=== PATIENT | female | born 1950 ===

== ENCOUNTER 2021-12-24 09:37 | Outpatient (REF) | payer MEDICARE, SELFPAY ==
[2021-12-24 11:26] LABS: MANUAL DIFF FLAG NO
[2021-12-24 11:57] LABS: Appearance Urine Cloudy; Color Urine Yellow; Glucose Urine UA Negative (Negative); Leukocyte Esterase Urine Moderate (2+) (Negative); Nitrite Urine Negative (Negative); PH 7.5 (5.0-9.0); UMIC TRIGGER UA YES; Urine Blood Negative (Negative); Urine Ketones Negative (Negative); Urine Protein Negative (Neg-Trace)
[2021-12-24 11:59] LABS: Basophils Percent Auto 0.2 % (0-2); Hemoglobin 13.6 g/dl (12.0-16.0); Imm Gran Abs Auto 0.01 X10*3/uL (0.00-0.03); Imm Gran Pct Auto 0.2 % (0.0-0.4); Lymphocytes Absolute Auto 2.7 X10*3/uL (1.2-4.9); Lymphocytes Percent Auto 53.1 % (20-40); Mean Corpuscular Hemoglobin 32.4 pg (27.0-33.0); Mean Corpuscular Volume 95.2 fL (80.0-98.0); Mean Platelet Volume 9.1 fL (9.4-12.3); Monocytes Absolute Auto 0.3 X10*3/uL (0.1-1.2); Monocytes Percent Auto 5.5 % (2-11); Neutrophils Absolute Auto 2.1 x10*3/uL (2.0-8.3); Platelet Count 244 X10*3/uL (160-400); White Blood Count 5.1 X10*3/uL (4.8-10.8)
[2021-12-24 12:03] LABS: Bacteria Urine None Seen (None Seen); Hyaline Casts Urine 0-2 /LPF (0-2); RBC Urine 0-2 /HPF (0-2); Squamous Epithelial Cell Urine 0-2 /HPF (0-2)
[2021-12-24 12:27] LABS: Alanine Aminotransferase 38 U/L (0-31); Alkaline Phosphatase 47 U/L (39-117); Anion Gap 14 (12-20); Aspartate Amino Transferase 30 U/L (5-31); Bilirubin Total 1.4 mg/dL (0.0-1.0); Blood Urea Nitrogen 13 mg/dL (9-16); Calcium 9.2 mg/dL (8.4-10.2); Carbon Dioxide 27 mmol/L (22-29); Chloride 103 mmol/L (96-108); Cholesterol 166 mg/dL; Estimated Glomerular Filt Rate > 60; Glucose Fasting 92 mg/dL (60-99); HDL Cholesterol 76 mg/dL; LDL Cholesterol Calculated 66 mg/dl; Potassium 4.2 mmol/L (3.3-5.1); Sodium 140 mmol/L (135-145); Total Protein 7.5 g/dL (6.5-8.0); Triglycerides 121 mg/dL
[2021-12-24 12:29] LABS: Creatinine Urine 50.19 mg/dL; Microalbumin Urine < 5.0 mg/L
[2021-12-24 12:30] LABS: TSH reflex Free T4 1.69 uIU/mL (0.32-4.0)
== END 2021-12-24 09:38 | disposition home or self-care (01) ==
LOC: HO.HMGCLDS 09:37
PROVIDERS: PCP Family Medicine; Visit Provider Family Medicine
DX: Z00.00 Encounter for general adult medical examination without abnormal findings (principal); I10 Essential (primary) hypertension
CPT/HCPCS: 36415; 80053; 80061; 81001; 82043; 84443; 85025

== ENCOUNTER 2022-04-05 14:36 | Outpatient (REF) | payer MEDICARE, SELFPAY ==
--- NOTE | ~2022-04-05 | MM_ITS ---
EXAMINATION: MM SCREENING DIGITAL BREAST TOMOSYNTHESIS, BILATERAL CLINICAL INFORMATION: Screening. Asymptomatic. Age 71. No prior breast imaging. No known family history breast cancer. The lifetime risk of breast cancer based on the Tyrer-Cuzick Model is 3%. COMPARISON: None (current study represents initial baseline exam). TECHNIQUE: Digital breast tomosynthesis is performed in both the craniocaudal and mediolateral oblique views along with computer-aided detection (CAD). Synthesized 2D images are generated from the tomosynthesis. FINDINGS: There are scattered areas of fibroglandular density (ACR BI-RADS breast composition Category b). Breast tissue composition borders on heterogeneously dense in the bilateral anterior breasts. There are no significant masses, abnormal calcifications, or other abnormalities. The axilla and skin contours are unremarkable. MM/MM tomosynthesis screening BI IMPRESSION: No mammographic evidence of malignancy. ASSESSMENT: BI-RADS 1: Negative RECOMMENDATION: Routine annual mammography screening. This patient's information was entered into a reminder system with a target due date for their next mammogram.
== END 2022-04-05 14:37 | disposition home or self-care (01) ==
LOC: HO.MAMMO 14:36
PROVIDERS: PCP Family Medicine; Visit Provider Family Medicine
DX: Z12.31 Encounter for screening mammogram for malignant neoplasm of breast (principal)
CPT/HCPCS: 77063; 77067

== ENCOUNTER 2022-04-09 10:24 | Outpatient (REF) | payer MEDICARE, SELFPAY ==
--- NOTE | ~2022-04-09 | MR_ITS ---
EXAMINATION: MRI BRAIN WITHOUT CONTRAST. CLINICAL INFORMATION: 71-year-old with self-reported forgetfulness and family history of Alzheimer's. Other amnesia. COMPARISON: 08/10/2008 CT brain. TECHNIQUE: Multiplanar multisequence MR imaging of the brain was done without IV contrast. FINDINGS: Brain Volume: Mild generalized diffuse supratentorial parenchymal volume loss and [id number] generalized diffuse cerebellar volume loss within the limitations of qualitative assessment. Structural: No malformations. Brain and Meninges: A few small foci of subcortical FLAIR/T2 signal hyperintensity are seen in the right frontal lobe near the convexity and within the subcortical left frontal lobe as well which are nonspecific findings. Small punctate and minimal patchy zones of FLAIR/T2 signal hyperintensity are noted in the deep parieto-occipital white matter bilaterally. Minor periventricular leukoaraiosis noted bilaterally, which is an age-related phenomenon. DWI sequence demonstrates no restricted diffusion to suggest acute or subacute cerebral ischemia. Gradient refocused imaging demonstrates no abnormal susceptibility-weighted signal loss to suggest hemorrhage, hemosiderin staining or abnormal mineralization. No extra-axial fluid collections, space-occupying process or mass effect. Ventricles and Subarachnoid Spaces: The ventricular system and subarachnoid spaces are approximately proportional to the degree of parenchymal volume loss, without hydrocephalus. Orbital Structures: The visualized orbital structures are grossly unremarkable within the limitations of the study. Vascular: Signal voids are noted in the visualized major intracranial vessels. Osseous Structures, Sinuses/Mastoids, Extracranial Soft Tissues: Mild mucosal thickening in the ethmoid complex noted bilaterally. Osseous marrow signal intensity appears within normal limits. The visualized extracranial soft tissue structures are unremarkable. MR/MR head/brain wo con IMPRESSION: 1. Scattered mild white matter T2 hyperintensities in both cerebral hemispheres which are nonspecific but could be reflective of chronic ischemic microangiopathy in a patient of this age. No acute or subacute infarct, hemorrhage, extra-axial fluid collection, space-occupying process, mass effect or hydrocephalus. 2. Mild generalized diffuse supratentorial and [id number]-yy-[id number] generalized cerebellar volume loss.
== END 2022-04-09 10:25 | disposition home or self-care (01) ==
LOC: HO.MRI 10:24
PROVIDERS: Visit Provider Family Medicine
DX: R41.3 Other amnesia (principal)
CPT/HCPCS: 70551

== ENCOUNTER 2022-04-30 11:26 | Outpatient (REF) | payer MEDICARE, SELFPAY ==
[2022-04-30 13:51] LABS: MANUAL DIFF FLAG NO
[2022-04-30 13:57] LABS: Basophils Percent Auto 0.2 % (0-2); Hematocrit 40.4 % (37.0-47.0); Hemoglobin 13.6 g/dl (12.0-16.0); Imm Gran Abs Auto 0.02 X10*3/uL (0.00-0.03); Imm Gran Pct Auto 0.3 % (0.0-0.4); Lymphocytes Absolute Auto 2.1 X10*3/uL (1.2-4.9); Lymphocytes Percent Auto 36.7 % (20-40); Mean Corpuscular HGB Conc 33.7 g/dl (31.0-35.0); Mean Corpuscular Hemoglobin 31.9 pg (27.0-33.0); Mean Corpuscular Volume 94.8 fL (80.0-98.0); Mean Platelet Volume 9.1 fL (9.4-12.3); Monocytes Absolute Auto 0.4 X10*3/uL (0.1-1.2); Monocytes Percent Auto 6.7 % (2-11); Neutrophils Absolute Auto 3.3 x10*3/uL (2.0-8.3); Neutrophils Percent Auto 56.1 % (45-73); Platelet Count 225 X10*3/uL (160-400); Red Blood Count 4.26 X10*6/uL (4.20-5.50); Red Cell Distribution Width 13.2 % (11.0-16.0); White Blood Count 5.8 X10*3/uL (4.8-10.8)
[2022-04-30 14:35] LABS: Erythrocyte Sedimentation Rate 7 MM/HR (0-20)
[2022-04-30 15:44] LABS: Anion Gap 11 (12-20); Blood Urea Nitrogen 12 mg/dL (9-16); Calcium 8.8 mg/dL (8.4-10.2); Carbon Dioxide 30 mmol/L (22-29); Chloride 105 mmol/L (96-108); Estimated Glomerular Filt Rate > 60; Glucose Random 76 mg/dL (60-115); Potassium 4.2 mmol/L (3.3-5.1); Sodium 142 mmol/L (135-145)
[2022-04-30 16:16] LABS: Folate 8.4 ng/mL (> or = 4.0); Vitamin B12 644 pg/mL (200-900); Vitamin D 25-OH Total 28.7 ng/mL (>30)
[2022-05-01 04:50] LABS: Syphilis Screen Nonreactive (Nonreactive)
[2022-05-01 05:59] LABS: HBS Num1 0.11 mIU/mL (0-7.99); HBc Num1 0.12 S/CO (0.00-0.79); HBsAGNum1 0.23 S/CO (0.00-0.99); HIV AB/AG Nonreactive (Nonreactive); HIV Num 1 0.07 S/CO (0.00-0.99); Hepatitis B Core Antibody Nonreactive (Nonreactive); Hepatitis B Surface Antigen Negative (Negative); ~HepC Num1 0.15 S/CO (0.00-0.79); ~Hepatitis B Surface Antibody NONREACTIVE (Nonreactive); ~Hepatitis C Antibody Nonreactive (Nonreactive)
== END 2022-04-30 11:27 | disposition home or self-care (01) ==
LOC: HO.WFDLDS 11:26
PROVIDERS: Visit Provider Family Medicine
DX: Z00.00 Encounter for general adult medical examination without abnormal findings (principal); Z11.4 Encounter for screening for human immunodeficiency virus [HIV]; E53.8 Deficiency of other specified B group vitamins; E55.9 Vitamin D deficiency, unspecified; R41.3 Other amnesia
CPT/HCPCS: 36415; 80048; 82306; 82607; 82746; 85025; 85652; 86704; 86706; 86780; 86803; 87340; 87389

== ENCOUNTER 2022-09-06 11:42 | Outpatient (AMB) | payer MEDICARE, SELFPAY ==
--- NOTE | 2022-09-06 11:55 | MHC.PC.OV ---
Vital Signs 09/06/22 11:56 Height 5 ft 3 in Weight 129 lb 8 oz BMI 22.9 BP 118/58 L Blood Pressure Location Lt brachial Position Sitting Pulse 64 Pulse Source Pulse Oximeter Pulse Oximetry (%) 99 Oxygen Delivery Method Room Air Intake Visit Reasons: f/u bone density test and chronic conditions Intake Note: Patient is here for follow up on chronic conditions. Allergies carbamazepine [From Tegretol] Allergy (Mild, Verified 09/06/22 12:01) SKIN REACTION latex [Latex] Allergy (Mild, Verified 09/06/22 12:01) ITCHY lithium [[place]] Allergy (Mild, Verified 09/06/22 12:01) SWELLING From Seroquel Allergy (Mild, Uncoded 09/06/22 12:01) ? Tobacco use date assessed: 09/06/22 Dental Screening Dental Screen Date: 09/06/22 Did you have a dental visit in the last 12 months?: Yes Did you have a dental problem in the last 6 months where you did not have access to dental care?: No Was dental information given to patient?: No HPI f/u bone density test and chronic conditions HPI Details 72 y/o female presents to f/u bone density test and chronic conditions such as memory changes. Pt had noted she had a diagnosis of osteoporosis in the past. She had seen neuropsych 06/27/22. She had appeared to have a mild to moderate dementia, likely combination of Alzheimer's disease and vascular factors. They had recommended psychotropic medication adjustments, a sleep study and increased exercise. They report no one has contacted her yet about a bone density test. [facility] Surgical History History of partial hysterectomy Family History Other Mental health disorder Social History (Updated 09/06/22 @ 12:04 by Yelitza Henderson CMA) Housing: Condominium Alcohol intake: never Patient Tobacco Use Status: Never used Tobacco e-Cigarette/Vaping Use: Never Used Second Hand Smoke Exposure: No Special joanie needs: No service: No Current occupational status: retired Cognitive needs: No Hearing needs: No Vision needs: Yes (reading glasses) Questionnaire Thrive Questionnaire Date Thrive assessed: 03/21/22 LEXX-7 AMB Questionnaire LEXX-7 Date LEXX - 7 assessed: 03/21/22 Source: Developed by Drs. Slade Naik, Angie Morillo, Joaquín Franco and colleagues, with an educational nayeli from [employer]. Review of Systems Const Denies chills, Denies fatigue, Denies fever(s), Denies headache(s) and Denies weakness ENT Denies dizziness and Denies headache(s) Card Denies dyspnea Resp Denies cough, Denies dyspnea, Denies wheezing and Denies other (shortness of breath) Musc Denies numbness and Denies tingling Neuro Denies dizziness, Denies headache(s), Denies numbness, Denies tingling and Denies weakness Psych Denies anxiety and Denies depression Endo Denies fatigue Aller/Immun Denies wheezing Physical exam (Primary Care) Vital Signs: Last Vital Signs Pulse 64 09/06/22 11:56 BP 118/58 L 09/06/22 11:56 Pulse Ox 99 09/06/22 11:56 Oxygen Delivery Method Room Air 09/06/22 11:56 BMI result Body Mass Index 22.9 Tobacco/Smoking Status: Tobacco use Status Tobacco use date assessed 09/06/22 09/06/22 12:09 Patient Tobacco Use Status Never used Tobacco 09/06/22 12:04 e-Cigarette/Vaping Use Never Used 09/06/22 12:04 Thrive Assessment: Date of Thrive Assessment Date Thrive assessed 03/21/22 09/06/22 11:58 Const General: well developed; No acute distress Nutritional Appearance: well nourished Orientation/consciousness: patient oriented x3 HENMT Head: Yes normocephalic and Yes atraumatic Eyes General: appearance normal, both eyes and all related structures Pupils: Equal, round and reactive pupils present EOM: EOMs intact bilaterally Resp Effort & Inspection: normal respiratory effort Neuro General: patient oriented x3 and gait normal Cranial nerves: Yes Equal, round and reactive pupils present Psych Affect: normal affect Assessment and Plan Assessment & Plan (1) Memory changes: Code(s): R41.3 - Other amnesia Plan: Ongoing and worsening memory and cognition changes. Neuropsych believes this is likely Alzheimer's and likely also some microvascular dementia as well However neuropsych also suggest that her psychiatric issues and in particular depression may be affecting her memory as well Also recommended that she get a sleep study as this may be affecting cognition and memory Sleep Medicine referral is made A recommendation for donepezil was made so we will trial a low dose and follow-up Increasing citalopram for better control of depression Had a long discussion at again about benzodiazepine medications as she is on to any scanned greatly affect memory and can be permanent - patient and share that the psych medication provider had worked hard on getting her anxiety under control with these medications. We will readdress these after increasing citalopram. I will also call her current psych med provider. (2) Screening for osteoporosis: Code(s): Z13.820 - Encounter for screening for osteoporosis Plan: Order for bone density is made (3) Hypersomnolence: Code(s): G47.10 - Hypersomnia, unspecified Plan: Referred to Sleep Medicine (4) Depression with anxiety: Code(s): F41.8 - Other specified anxiety disorders Plan: As above, increasing citalopram (5) Bipolar disorder: Code(s): F31.9 - Bipolar disorder, unspecified Plan: Continue olanzapine Discussed with patient and her that neuropsych did suggest that olanzapine can be problematic for people greater than 65 No changes made currently (6) Alzheimer's dementia: Code(s): G30.9 - Alzheimer's disease, unspecified; F02.80 - Dementia in other diseases classified elsewhere, unspecified severity, without behavioral disturbance, psychotic disturbance, mood disturbance, and anxiety Plan: As above, starting a low dose of donepezil Orders: Referrals Sleep Medicine Referral G47.10 - Hypersomnia, unspecified Medications: New donepezil 5 mg PO BEDTIME 30 days 30 tabs 2RF Changed From citalopram 20 mg PO DAILY To citalopram 40 mg PO DAILY 30 days 30 tabs 2RF Coding Level of Care Code Est Pt Level 4 (74138) Diagnoses Memory changes R41.3 Screening for osteoporosis Z13.820 Hypersomnolence G47.10 Depression with anxiety F41.8 Bipolar disorder F31.9 Alzheimer's dementia G30.9; F02.80
[2022-09-06 11:56] VITALS: BP 118/58; PULSE 64; O2SAT 99; BMI 22.9
== END 2022-09-06 13:36 | disposition home or self-care (01) ==
PROVIDERS: Visit Provider Family Medicine
DX: F41.8 Other specified anxiety disorders (principal); F31.9 Bipolar disorder, unspecified; G30.9 Alzheimer's disease, unspecified; F02.80 Dementia in other diseases classified elsewhere, unspecified severity, without behavioral disturbance, psychotic disturbance, mood disturbance, and anxiety; Z13.820 Encounter for screening for osteoporosis; R41.3 Other amnesia; G47.10 Hypersomnia, unspecified
CPT/HCPCS: 99214

== ENCOUNTER 2022-11-13 14:26 | Outpatient (AMB) | payer MEDICARE, SELFPAY ==
[2022-11-13 14:32] VITALS: BP 118/62; PULSE 59; O2SAT 98; BMI 23.3
--- NOTE | 2022-11-13 14:32 | A.OFFPC_ITS ---
Vital Signs 11/13/22 14:32 Height 5 ft 3 in Weight 131 lb 6 oz BMI 23.3 BP 118/62 Blood Pressure Location Lt brachial Position Sitting Pulse 59 Pulse Oximetry (%) 98 Oxygen Delivery Method Room Air Intake Visit Reasons: f/u depression/anxiety, memory changes Intake Note: Patient is here following up on depression and anxiety and memory. Allergies carbamazepine [From Tegretol] Allergy (Mild, Verified 11/13/22 14:35) SKIN REACTION latex [Latex] Allergy (Mild, Verified 11/13/22 14:35) ITCHY lithium [[place]] Allergy (Mild, Verified 11/13/22 14:35) SWELLING From Seroquel Allergy (Mild, Uncoded 11/13/22 14:35) ? Tobacco use date assessed: 11/13/22 Fall risk assessment: No Falls in past year Last assessed Fall Risk: 11/13/22 Dental Screening Dental Screen Date: 11/13/22 Did you have a dental visit in the last 12 months?: Yes Did you have a dental problem in the last 6 months where you did not have access to dental care?: No Was dental information given to patient?: Patient has dentist HPI f/u depression/anxiety, memory changes HPI Details 72 y/o female presents to f/u depression /anxiety and memory changes. Increased her citalopram and continued her olanzapine. Had also started her on a low dose of donepezil. They report she is not on alprazolam. [facility] Surgical History History of partial hysterectomy Family History Other Mental health disorder Social History Housing: Condominium Alcohol intake: never Patient Tobacco Use Status: Never used Tobacco e-Cigarette/Vaping Use: Never Used Second Hand Smoke Exposure: No Special joanie needs: No service: No Current occupational status: retired Cognitive needs: No Hearing needs: No Vision needs: Yes (reading glasses) Questionnaire PHQ-9 Over the last 2 weeks, how often have you been bothered by any of the following problems? 1. Little interest or pleasure in doing things: not at all 2. Feeling down, depressed, or hopeless: not at all 3. Trouble falling or staying asleep, or sleeping too much: not at all 4. Feeling tired or having little energy: not at all 5. Poor appetite or overeating: not at all 6. Feeling bad about yourself - or that you are a failure or have let yourself or your family down: not at all 7. Trouble concentrating on things, such as reading the newspaper or watching television: more than half the days 8. Moving or speaking so slowly that other people could have noticed. Or the opposite - being so fidgety or restless that you have been moving around a lot more than usual: not at all 9. Thoughts that you would be better off or of hurting yourself in some way: not at all Total score: 2 Source: Developed by Drs. Slade Naik, Angie Morillo, Joaquín Franco and colleagues, with an educational nayeli from [employer]. Thrive Questionnaire Date Thrive assessed: 03/21/22 LEXX-7 AMB Questionnaire LEXX-7 Date LEXX - 7 assessed: 11/13/22 Feeling nervous, anxious, or on edge: 2 = More than half the days Not being able to stop or control worryin = Not at all Worrying too much about different things: 2 = More than half the days Trouble relaxin = Not at all Being so restless that it is hard to sit still: 0 = Not at all Becoming easily annoyed or irritable: 0 = Not at all Feeling afraid as if something awful might happen: 0 = Not at all Total LEXX-7 score (0-4 normal; 5-9 mild; 10-14 moderate; 15-21 severe): 4 Source: Developed by Drs. Slade Naik, Angie Morillo, Joaquín Franco and colleagues, with an educational nayeli from [employer]. Review of Systems Const Denies chills, Denies fatigue, Denies fever(s), Denies headache(s) and Denies weakness ENT Denies dizziness and Denies headache(s) Card Denies dyspnea Resp Denies cough, Denies dyspnea, Denies wheezing and Denies other (shortness of breath) Musc Denies numbness and Denies tingling Neuro Denies dizziness, Denies headache(s), Denies numbness, Denies tingling and Denies weakness Psych Reports anxiety and Reports depression Endo Denies fatigue Aller/Immun Denies wheezing Physical exam (Primary Care) Vital Signs: Last Vital Signs Pulse 59 11/13/22 14:32 BP 118/62 11/13/22 14:32 Pulse Ox 98 11/13/22 14:32 Oxygen Delivery Method Room Air 11/13/22 14:32 BMI result Body Mass Index 23.3 Tobacco/Smoking Status: Tobacco use Status Tobacco use date assessed 11/13/22 11/13/22 14:43 Patient Tobacco Use Status Never used Tobacco 11/13/22 14:43 e-Cigarette/Vaping Use Never Used 11/13/22 14:43 PHQ-9: PHQ-9 Score PHQ-9: Total score 2 11/13/22 14:52 Thrive Assessment: Date of Thrive Assessment Date Thrive assessed 03/21/22 11/13/22 14:43 Const General: well developed; No acute distress Nutritional Appearance: well nourished Orientation/consciousness: patient oriented x3 HENMT Head: Yes normocephalic and Yes atraumatic Eyes General: appearance normal, both eyes and all related structures Pupils: Equal, round and reactive pupils present EOM: EOMs intact bilaterally Resp Effort & Inspection: normal respiratory effort Neuro General: patient oriented x3 and gait normal Cranial nerves: Yes Equal, round and reactive pupils present Psych Affect: normal affect Assessment and Plan Assessment & Plan (1) Alzheimer's dementia: Code(s): G30.9 - Alzheimer's disease, unspecified; F02.80 - Dementia in other diseases classified elsewhere, unspecified severity, without behavioral disturbance, psychotic disturbance, mood disturbance, and anxiety Plan: Likely Alzheimer's dementia with some microvascular dementia as well May also have anxiety and depression impacting her memory changes and medications such as alprazolam are certainly affecting her memory also. Alprazolam was discontinued though lorazepam was continued. Her says he noticed a slight worsening of for memory since this change but I suspect this may be due to some increased anxiety and should either improve on its own or that she will need to have other means of controlling her anxiety. Advised she talk to her psychiatric med provider about using other medications to improve anxiety. He is apprehensive about increasing her SSRI as he notes that she has bipolar disorder. Unclear if this is bipolar 1 or bipolar 2. Follow-up with psychiat [facility] med provider. They have not tried donepezil which was recommended by neuropsychiatry. Reviewed medication with patient again and she wants to try it. If she has any adverse effects she can discontinue it. Had referred her to Sleep Medicine. Patient says she did not want to try the test. Reviewed how test is performed and she is agreeable to trying this at home. (2) Depression with anxiety: Code(s): F41.8 - Other specified anxiety disorders Plan: As above (3) Bipolar disorder: Code(s): F31.9 - Bipolar disorder, unspecified Plan: As above Coding Level of Care Code Est Pt Level 4 (95128) Diagnoses Alzheimer's dementia G30.9; F02.80 Depression with anxiety F41.8 Bipolar disorder F31.9
== END 2022-11-13 15:23 | disposition home or self-care (01) ==
PROVIDERS: PCP Family Medicine; Visit Provider Family Medicine
DX: G30.9 Alzheimer's disease, unspecified (principal); F02.80 Dementia in other diseases classified elsewhere, unspecified severity, without behavioral disturbance, psychotic disturbance, mood disturbance, and anxiety; F41.8 Other specified anxiety disorders; F31.9 Bipolar disorder, unspecified
CPT/HCPCS: 99214

== ENCOUNTER 2023-02-12 13:59 | Outpatient (AMB) | payer MEDICARE, SELFPAY ==
[2023-02-12 14:06] VITALS: BP 122/68; PULSE 61; O2SAT 98; BMI 23.6
--- NOTE | 2023-02-12 14:06 | A.OFFPC_ITS ---
Vital Signs 02/12/23 14:06 Height 5 ft 3 in Weight 133 lb 6 oz BMI 23.6 BP 122/68 Blood Pressure Location Lt brachial Position Sitting Pulse 61 Pulse Source Pulse Oximeter Pulse Oximetry (%) 98 Oxygen Delivery Method Room Air Intake Visit Reasons: f/u anxiety/depression Intake Note: Patient is here to follow up on anxiety and depression. Allergies carbamazepine [From Tegretol] Allergy (Mild, Verified 02/12/23 14:07) SKIN REACTION latex [Latex] Allergy (Mild, Verified 02/12/23 14:07) ITCHY lithium [[place]] Allergy (Mild, Verified 02/12/23 14:07) SWELLING From Seroquel Allergy (Mild, Uncoded 02/12/23 14:07) ? Tobacco use date assessed: 02/12/23 Fall risk assessment: 2 + Falls in past year Last assessed Fall Risk: 02/12/23 HPI f/u anxiety/depression HPI Details 72 y/o female presents to f/u anxiety/de pression and memory changes. Had trialed donepezil as recommended by neuropsych. She reports she has trialed this but did not like it - unclear why. She continues to take escitalopram 20mg daily for her anxiety/depression and denies any problem with this. They report two episodes of fainting spells. She reports she could improve hydration. They deny any chest pain. [facility] Surgical History History of partial hysterectomy Family History Other Mental health disorder Social History Housing: Condominium Alcohol intake: never Patient Tobacco Use Status: Never used Tobacco e-Cigarette/Vaping Use: Never Used Second Hand Smoke Exposure: No Special joanie needs: No service: No Current occupational status: retired Cognitive needs: No Hearing needs: No Vision needs: Yes (reading glasses) Questionnaire PHQ-9 Over the last 2 weeks, how often have you been bothered by any of the following problems? 1. Little interest or pleasure in doing things: not at all 2. Feeling down, depressed, or hopeless: not at all 3. Trouble falling or staying asleep, or sleeping too much: not at all 4. Feeling tired or having little energy: not at all 5. Poor appetite or overeating: not at all 6. Feeling bad about yourself - or that you are a failure or have let yourself or your family down: not at all 7. Trouble concentrating on things, such as reading the newspaper or watching television: not at all 8. Moving or speaking so slowly that other people could have noticed. Or the opposite - being so fidgety or restless that you have been moving around a lot more than usual: not at all 9. Thoughts that you would be better off or of hurting yourself in some way: not at all Total score: 0 Depression Screening Interpretation: Negative Depression Screening Done: Yes Source: Developed by Drs. Slade Naik, Angie Morillo, Joaquín Franco and colleagues, with an educational nayeli from [email or web address]. Thrive Questionnaire Date Thrive assessed: 03/21/22 LEXX-7 AMB Questionnaire LEXX-7 Date LEXX - 7 assessed: 02/12/23 Feeling nervous, anxious, or on edge: 0 = Not at all Not being able to stop or control worryin = Not at all Worrying too much about different things: 0 = Not at all Trouble relaxin = Not at all Being so restless that it is hard to sit still: 0 = Not at all Becoming easily annoyed or irritable: 0 = Not at all Feeling afraid as if something awful might happen: 0 = Not at all Total LEXX-7 score (0-4 normal; 5-9 mild; 10-14 moderate; 15-21 severe): 0 Source: Developed by Drs. Slade Naik, Angie Morillo, Joaquín Franco and colleagues, with an educational nayeli from [email or web address]. Review of Systems Const Denies chills, Denies fatigue, Denies fever(s), Denies headache(s) and Denies weakness ENT Denies dizziness and Denies headache(s) Card Denies chest pain, Denies lightheadedness, Denies dyspnea and Denies other (Palpitations) Resp Denies cough, Denies dyspnea, Denies wheezing and Denies other ( shortness of breath) Musc Denies numbness and Denies tingling Neuro Denies dizziness, Denies headache(s), Denies numbness, Denies tingling, Denies paresthesias and Denies weakness Psych Denies anxiety and Denies depression Endo Denies fatigue Aller/Immun Denies wheezing Physical exam (Primary Care) Vital Signs: Last Vital Signs Pulse 61 02/12/23 14:06 BP 122/68 02/12/23 14:06 Pulse Ox 98 02/12/23 14:06 Oxygen Delivery Method Room Air 02/12/23 14:06 BMI result Body Mass Index 23.6 Tobacco/Smoking Status: Tobacco use Status Tobacco use date assessed 02/12/23 02/12/23 14:14 Patient Tobacco Use Status Never used Tobacco 02/12/23 14:14 e-Cigarette/Vaping Use Never Used 02/12/23 14:14 PHQ-9: PHQ-9 Score PHQ-9: Total score 0 02/12/23 14:16 Depression Screening Interpretation: Negative Thrive Assessment: Date of Thrive Assessment Date Thrive assessed 03/21/22 02/12/23 14:14 Const General: no acute distress and well developed Nutritional Appearance: well nourished Orientation/consciousness: patient oriented x3 [facility] Head: Yes normocephalic and Yes atraumatic Eyes General: appearance normal, both eyes and all related structures Pupils: Equal, round and reactive pupils present EOM: EOMs intact bilaterally Resp Effort & Inspection: normal respiratory effort Auscultation: clear to auscultation bilaterally Cardio Rate: regular rate Rhythm: regular rhythm Heart sounds: S1 normal heart sound present, S2 normal heart sound present, no gallops, no murmurs and no rubs Neuro General: patient oriented x3 and gait normal Cranial nerves: Yes Equal, round and reactive pupils present Psych Affect: normal affect Assessment and Plan Assessment & Plan (1) Depression with anxiety: Code(s): F41.8 - Other specified anxiety disorders Plan: Appears?stable?on?escitalopram?20?mg?daily She?will?continue?this Has?a?new?psychiatric?medication?provider?but?her?husba nd?says?this?provider?is?not?a?good?fit Will?ask?our?nurse?navigator?to?help?get?a?new?psych?med?provider (2) Memory changes: Code(s): R41.3 - Other amnesia Plan: Tried?donepezil?but?says?she?did?not?like?it.??Was?not?clear?as?to?what?the?prob leticia?was. She?can?hold?off?on?donepezil?but?I?le t?them?know?if?they?wanted?to?try?it?again?he?can?let?me?know Encouraged?exercise?and?memory?exercises. (3) Syncope: Code(s): R55 - Syncope and collapse Plan: Patient?had?2?episodes?of?syncope Patient?and??say?she?does?not?drink?much?water?and?gets?dehydrated Encouraged?good?hydration Encouraged?her?to?stand?slowly?and?ensure?she?has?her?balance?before?walking.??S queeze?legs?prior?to?getting?up?to?walk Sit?back?down?if?feeling?dizzy They?will?let?me?know?if?she?is?still?having?symptoms Medications: Changed From atorvastatin 40 mg PO DAILY To atorvastatin 40 mg PO DAILY 90 days 90 tabs 3RF Coding Level of Care Code Est Pt Level 4 (17372) Diagnoses Depression with anxiety F41.8 Memory changes R41.3 Syncope R55
== END 2023-02-12 14:42 | disposition home or self-care (01) ==
PROVIDERS: PCP Family Medicine; Visit Provider Family Medicine
DX: F41.8 Other specified anxiety disorders (principal); R41.3 Other amnesia; R55 Syncope and collapse
CPT/HCPCS: 99214

== ENCOUNTER 2023-04-08 14:09 | Outpatient (REF) | payer MEDICARE, SELFPAY ==
--- NOTE | ~2023-04-08 | MM_ITS ---
EXAMINATION: MM SCREENING DIGITAL BREAST TOMOSYNTHESIS, BILATERAL CLINICAL INFORMATION: Screening. Asymptomatic. COMPARISON: Mammography: This study is compared with prior exams dating back to 2022. TECHNIQUE: Digital breast tomosynthesis is performed in both the craniocaudal and mediolateral oblique views along with computer-aided detection (CAD). Synthesized 2D images are generated from the tomosynthesis. FINDINGS: There are scattered areas of fibroglandular density (ACR BI-RADS breast composition Category b). There are no significant masses, abnormal calcifications, or other abnormalities. MM/MM tomosynthesis screening BI IMPRESSION: No mammographic evidence of malignancy. ASSESSMENT: BI-RADS BI-RADS 1 - Negative RECOMMENDATION: Routine annual mammography screening. 1 year F/U This examination should not preclude the clinical evaluation of a suspicious palpable abnormality. This patient's information was entered into a reminder system with a target due date for their next mammogram.
== END 2023-04-08 14:10 | disposition home or self-care (01) ==
LOC: HO.MAMMO 14:09
PROVIDERS: PCP Family Medicine; Visit Provider Family Medicine
DX: Z12.31 Encounter for screening mammogram for malignant neoplasm of breast (principal)
CPT/HCPCS: 77063; 77067

== ENCOUNTER → 2023-04-08 14:15 | Outpatient (BNV) | payer MEDICARE, SELFPAY | PROVIDERS: PCP Family Medicine; Visit Provider Radiology Diagnostic Radiology | DX: Z12.31 Encounter for screening mammogram for malignant neoplasm of breast (principal) | CPT/HCPCS: 77063; 77067 ==

== ENCOUNTER 2023-05-13 14:32 | Outpatient (AMB) | payer MEDICARE, SELFPAY ==
[2023-05-13 14:37] VITALS: BP 107/56; PULSE 62; O2SAT 97; BMI 24.6
--- NOTE | 2023-05-13 14:37 | A.OFFPC_ITS ---
Vital Signs 05/13/23 14:37 Height 5 ft 3 in Weight 139 lb BMI 24.6 BP 107/56 L Blood Pressure Location Lt brachial Position Sitting Pulse 62 Pulse Source Pulse Oximeter Pulse Oximetry (%) 97 Oxygen Delivery Method Room Air Intake Visit Reasons: f/u anxiety/depression, memory changes Intake Note: Patient is here to follow up on anxiety, depression, and memory changes. Allergies carbamazepine [From Tegretol] Allergy (Mild, Verified 05/13/23 14:38) SKIN REACTION latex [Latex] Allergy (Mild, Verified 05/13/23 14:38) ITCHY lithium [[place]] Allergy (Mild, Verified 05/13/23 14:38) SWELLING From Seroquel Allergy (Mild, Uncoded 05/13/23 14:38) ? Tobacco use date assessed: 05/13/23 Fall risk assessment: No Falls in past year Last assessed Fall Risk: 05/13/23 HPI f/u anxiety/depression, memory changes HPI Details 73 y/o female presents to f/u anxiety/de pression and memory changes. They report she does see a psychiatrist now for her mood/memory changes. She states her mood feels controlled. Hx of stroke - no recent lipid panel to review. She is on artovastatin 40mg daily. [facility] Surgical History History of partial hysterectomy Family History Other Mental health disorder Social History Housing: Condominium Alcohol intake: never Patient Tobacco Use Status: Never used Tobacco e-Cigarette/Vaping Use: Never Used Second Hand Smoke Exposure: No Special joanie needs: No service: No Current occupational status: retired Cognitive needs: No Hearing needs: No Vision needs: Yes (reading glasses) Questionnaire PHQ-9 Over the last 2 weeks, how often have you been bothered by any of the following problems? 1. Little interest or pleasure in doing things: not at all 2. Feeling down, depressed, or hopeless: not at all 3. Trouble falling or staying asleep, or sleeping too much: not at all 4. Feeling tired or having little energy: not at all 5. Poor appetite or overeating: not at all 6. Feeling bad about yourself - or that you are a failure or have let yourself or your family down: not at all 7. Trouble concentrating on things, such as reading the newspaper or watching television: not at all 8. Moving or speaking so slowly that other people could have noticed. Or the opposite - being so fidgety or restless that you have been moving around a lot more than usual: not at all 9. Thoughts that you would be better off or of hurting yourself in some way: not at all Total score: 0 Depression Screening Interpretation: Negative Depression Screening Done: Yes 94893 - PHQ-9 Billing: Yes Source: Developed by Drs. Slade Naik, Joaquín Castillo and colleagues, with an educational nayeli from [employer]. Thrive Questionnaire Date Thrive assessed: 03/21/22 LEXX-7 AMB Questionnaire LEXX-7 Date LEXX - 7 assessed: 05/13/23 Feeling nervous, anxious, or on edge: 0 = Not at all Not being able to stop or control worryin = Not at all Worrying too much about different things: 0 = Not at all Trouble relaxin = Not at all Being so restless that it is hard to sit still: 0 = Not at all Becoming easily annoyed or irritable: 0 = Not at all Feeling afraid as if something awful might happen: 0 = Not at all Total LEXX-7 score (0-4 normal; 5-9 mild; 10-14 moderate; 15-21 severe): 0 Source: Developed by Drs. Slade Naik, Joaquín Castillo and colleagues, with an educational nayeli from [employer]. LEXX-7 Assessment Billing LEXX-7 Assessment Tool: LEXX-7 Assessment 39443 Review of Systems Const Denies chills, Denies fatigue, Denies fever(s), Denies headache(s) and Denies weakness ENT Denies dizziness and Denies headache(s) Card Denies dyspnea Resp Denies cough, Denies dyspnea, Denies wheezing and Denies other (shortness of breath) Musc Denies numbness and Denies tingling Neuro Denies dizziness, Denies headache(s), Denies numbness, Denies tingling and Denies weakness Psych Denies anxiety and Denies depression Endo Denies fatigue Aller/Immun Denies wheezing Physical exam (Primary Care) Vital Signs: Last Vital Signs Pulse 62 05/13/23 14:37 BP 107/56 L 05/13/23 14:37 Pulse Ox 97 05/13/23 14:37 Oxygen Delivery Method Room Air 05/13/23 14:37 BMI result Body Mass Index 24.6 Tobacco/Smoking Status: Tobacco use Status Tobacco use date assessed 05/13/23 05/13/23 14:47 Patient Tobacco Use Status Never used Tobacco 05/13/23 14:47 e-Cigarette/Vaping Use Never Used 05/13/23 14:47 PHQ-9: PHQ-9 Score PHQ-9: Total score 0 05/13/23 14:47 Depression Screening Interpretation: Negative Thrive Assessment: Date of Thrive Assessment Date Thrive assessed 03/21/22 05/13/23 14:47 Const General: well developed; No acute distress Nutritional Appearance: well nourished Orientation/consciousness: patient oriented x3 [facility] Head: Yes normocephalic and Yes atraumatic Eyes General: appearance normal, both eyes and all related structures Pupils: Equal, round and reactive pupils present EOM: EOMs intact bilaterally Resp Effort & Inspection: normal respiratory effort Auscultation: clear to auscultation bilaterally Cardio Rate: regular rate Rhythm: regular rhythm Heart sounds: S1 normal heart sound present, S2 normal heart sound present, no gallops, no murmurs and no rubs Neuro General: patient oriented x3 and gait normal Cranial nerves: Yes Equal, round and reactive pupils present Psych Affect: normal affect Assessment and Plan Assessment & Plan (1) Depression with anxiety: Code(s): F41.8 - Other specified anxiety disorders Plan: Stable?on?escitalopram?20?mg?daily Continue?current?medication Follow-up?with?psychiatrist?as?recommended (2) Memory changes: Code(s): R41.3 - Other amnesia Plan: Significant?memory?difficulties. Probable?Alzheimer's Has?seen?neuropsychiatry?and?recommended?follow- up?in?February?but?patient?missed?appointment Her??will?help?her?make?a?new?appointment (3) History of stroke: Code(s): Z86.73 - Personal history of transient ischemic attack (TIA), and cerebral infarction without residual deficits Plan: Currently?stable She?is?on?atorvastatin?40?mg?daily?and?her?blood?pressure?is?controlled. (4) Hyperlipidemia: Code(s): E78.5 - Hyperlipidemia, unspecified Plan: As?above,?on?atorvastatin?40?mg?daily?and?will?continue?this. Will?recheck?lipids?with?next?blood?draw (5) Low vitamin D level: Code(s): R79.89 - Other specified abnormal findings of blood chemistry Plan: Mildly?low?vitamin-D?level.??Will?recheck?vitamin-D?with?next?blood?draw Coding Level of Care Code Est Pt Level 4 (18082) Diagnoses Depression with anxiety F41.8 Memory changes R41.3 History of stroke Z86.73 Hyperlipidemia E78.5 Low vitamin D level R79.89 Additional Codes LEXX-7 Assessment Billing - LEXX-7 Assessment Tool: LEXX-7 Assessment 78003 ([id number])
== END 2023-05-13 15:54 | disposition home or self-care (01) ==
PROVIDERS: PCP Family Medicine; Visit Provider Family Medicine
DX: R41.3 Other amnesia (principal); F41.8 Other specified anxiety disorders; Z86.73 Personal history of transient ischemic attack (TIA), and cerebral infarction without residual deficits; E78.5 Hyperlipidemia, unspecified; R79.89 Other specified abnormal findings of blood chemistry
CPT/HCPCS: 99214

== ENCOUNTER 2023-11-15 10:50 | Outpatient (REF) | payer MEDICARE, SELFPAY ==
[2023-11-15 13:08] LABS: MANUAL DIFF FLAG NO
[2023-11-15 13:09] LABS: Basophils Percent Auto 0.3 % (0-2); Eosinophils Absolute Auto 0.1 X10*3/uL (0.0-0.4); Eosinophils Percent Auto 1.5 % (0-4); Hematocrit 39.8 % (37.0-47.0); Hemoglobin 13.6 g/dl (12.0-16.0); Imm Gran Abs Auto 0.03 X10*3/uL (0.00-0.03); Imm Gran Pct Auto 0.5 % (0.0-0.4); Lymphocytes Absolute Auto 2.9 X10*3/uL (1.2-4.9); Lymphocytes Percent Auto 46.4 % (20-40); Mean Corpuscular HGB Conc 34.2 g/dl (31.0-35.0); Mean Corpuscular Hemoglobin 32.1 pg (27.0-33.0); Mean Corpuscular Volume 93.9 fL (80.0-98.0); Mean Platelet Volume 8.9 fL (9.4-12.3); Monocytes Absolute Auto 0.3 X10*3/uL (0.1-1.2); Monocytes Percent Auto 5.3 % (2-11); Neutrophils Absolute Auto 2.8 x10*3/uL (2.0-8.3); Platelet Count 237 X10*3/uL (160-400); Red Blood Count 4.24 X10*6/uL (4.20-5.50); Red Cell Distribution Width 13.5 % (11.0-16.0); White Blood Count 6.2 X10*3/uL (4.8-10.8)
[2023-11-15 13:11] LABS: Appearance Urine Clear; Color Urine Yellow; Glucose Urine UA Negative (Negative); Leukocyte Esterase Urine Moderate (2+) (Negative); Nitrite Urine Negative (Negative); Specific Gravity - Urine 1.015 (1.005-1.025); UMIC TRIGGER UA YES; Urine Blood Negative (Negative); Urine Ketones Negative (Negative); Urine Protein Negative (Neg-Trace)
[2023-11-15 13:14] LABS: Bacteria Urine None Seen (None Seen); Hyaline Casts Urine 0-2 /LPF (0-2); RBC Urine 0-2 /HPF (0-2)
[2023-11-15 13:40] LABS: Creatinine Urine 100.26 mg/dL; Microalbumin Urine < 5.0 mg/L
[2023-11-15 13:46] LABS: Alanine Aminotransferase 25 U/L (0-31); Albumin Level 3.7 g/dL (3.5-5.0); Alkaline Phosphatase 53 U/L (39-117); Anion Gap 11 (12-20); Aspartate Amino Transferase 23 U/L (5-31); Bilirubin Total 1.1 mg/dL (0.0-1.0); Blood Urea Nitrogen 12 mg/dL (9-16); Calcium 9.3 mg/dL (8.4-10.2); Carbon Dioxide 28 mmol/L (22-29); Chloride 107 mmol/L (96-108); Cholesterol 158 mg/dL (<200); Estimated Glomerular Filt Rate 53; Glucose Fasting 90 mg/dL (60-99); HDL Cholesterol 68 mg/dL (>40); LDL Cholesterol Calculated 65 mg/dL (<100); Sodium 142 mmol/L (135-145); Total Protein 7.2 g/dL (6.5-8.0); Triglycerides 125 mg/dL (<150)
[2023-11-15 14:03] LABS: TSH reflex Free T4 1.66 uIU/mL (0.32-4.0); Vitamin D 25-OH Total 46.4 ng/mL (>30)
== END 2023-11-15 10:51 | disposition home or self-care (01) ==
LOC: HO.HMGCLDS 10:50
PROVIDERS: PCP Family Medicine; Visit Provider Family Medicine
DX: Z00.00 Encounter for general adult medical examination without abnormal findings (principal); E55.9 Vitamin D deficiency, unspecified; I10 Essential (primary) hypertension
CPT/HCPCS: 36415; 80053; 80061; 81001; 82306; 82570; 84443; 85025

== ENCOUNTER 2023-11-26 11:17 | Outpatient (AMB) | payer MEDICARE, SELFPAY ==
--- NOTE | 2023-11-26 12:09 | A.OFFPC_ITS ---
Vital Signs 11/26/23 12:15 Height 5 ft 3 in Weight 153 lb 2 oz BMI 27.1 BP 98/70 Blood Pressure Location Lt brachial Position Sitting Respiration 14 Pulse 63 Pulse Source Pulse Oximeter Temp 97.4 F Temp Source Oral Pulse Oximetry (%) 98 Oxygen Delivery Method Room Air Intake Visit Reasons: F/U labs and health maint. PE Intake Note: FOLLOW UP LABS /PE Is last menstrual period known: No Post menopausal: No Patient : No Allergies carbamazepine [From Tegretol] Allergy (Mild, Verified 11/26/23 12:14) SKIN REACTION lithium [[place]] Allergy (Mild, Verified 11/26/23 12:14) SWELLING From Seroquel Allergy (Mild, Uncoded 11/26/23 12:14) ? Tobacco use date assessed: 11/26/23 Fall risk assessment: No Falls in past year Last assessed Fall Risk: 11/26/23 Dental Screening Dental Screen Date: 11/26/23 Did you have a dental visit in the last 12 months?: Yes Did you have a dental problem in the last 6 months where you did not have access to dental care?: No Was dental information given to patient?: Patient has dentist HPI F/U labs and health maint. PE HPI Details 73 y/o female presents for an extended e xam with f/u labs and health maintenance. Labs drawn 11/15/23. Reviewed labs with pt. Triglycerides 125. TC 158. LDL 65. HDL 68. She is on artovastatin 40mg daily. She swims for exercise. She is unsure when her last bone density test was. HPI Comments History of Present Illness Details Documentation assistance for Ran Florentino MD, was provided by Dutch Harris, [employer] on 11/26/2023 at 1:06 PM EST. I, Dr. Florentino, have read, observed, and verified documentation. [facility] Surgical History History of partial hysterectomy Family History Other Mental health disorder Social History (Updated 11/26/23 @ 12:12 by MIRANDA Whitt) Housing: Condominium Alcohol intake: never Patient Tobacco Use Status: Never used Tobacco e-Cigarette/Vaping Use: Never Used Second Hand Smoke Exposure: No Special joanie needs: No service: No Current occupational status: retired Cognitive needs: No Hearing needs: No Vision needs: Yes (reading glasses) Questionnaire PHQ-9 Over the last 2 weeks, how often have you been bothered by any of the following problems? 1. Little interest or pleasure in doing things: not at all 2. Feeling down, depressed, or hopeless: not at all 3. Trouble falling or staying asleep, or sleeping too much: not at all 4. Feeling tired or having little energy: not at all 5. Poor appetite or overeating: not at all 6. Feeling bad about yourself - or that you are a failure or have let yourself or your family down: not at all 7. Trouble concentrating on things, such as reading the newspaper or watching television: not at all 8. Moving or speaking so slowly that other people could have noticed. Or the opposite - being so fidgety or restless that you have been moving around a lot more than usual: not at all 9. Thoughts that you would be better off or of hurting yourself in some way: not at all Total score: 0 Depression Screening Interpretation: Negative Depression Screening Done: Yes 15248 - PHQ-9 Billing: Yes Source: Developed by Drs. Slade Naik, Angie Morillo, Joaquín Franco and colleagues, with an educational nayeli from [employer]. Thrive Questionnaire Date Thrive assessed: 11/26/23 I am a: Patient What is your living situation today?: I have a steady place to live Within the past 12 months, did the food you bought not last and you didn't have the money to get more?: Never true Within the past 12 months, did you worry whether your food would run out before you got money to buy more?: Never true Do you have trouble paying for medicines?: No Do you have trouble getting transportation to medical appointments?: No Do you have trouble paying your heating and electricity bill?: No Do you have trouble taking care of your child, family member or friend?: No Do you have trouble with day-to-day activities such as bathing, preparing meals, shopping, managing finances, etc.?: No Are you currently unemployed and looking for a job?: No Are you interested in more education?: No Please select the resources that you would like help with: None Currently or been in a relationship where the following occur: No concerns reported THRIVE Score: 0 AUDIT C Alcohol Use Questionnaire (AUDIT-C) 1. How often do you have a drink containing alcohol?: Never 3. How often do you have six or more drinks on one occasion?: Never Total Score: 0 LEXX-7 AMB Questionnaire LEXX-7 Date LEXX - 7 assessed: 11/26/23 Feeling nervous, anxious, or on edge: 0 = Not at all Not being able to stop or control worryin = Not at all Worrying too much about different things: 0 = Not at all Trouble relaxin = Not at all Being so restless that it is hard to sit still: 0 = Not at all Becoming easily annoyed or irritable: 0 = Not at all Feeling afraid as if something awful might happen: 0 = Not at all Total LEXX-7 score (0-4 normal; 5-9 mild; 10-14 moderate; 15-21 severe): 0 Source: Developed by Drs. Slade Naik, Angie Morillo, Joaquín Franco and colleagues, with an educational nayeli from [employer]. LEXX-7 Assessment Billing LEXX-7 Assessment Tool: LEXX-7 Assessment 52366 Review of Systems Const Denies chills, Denies fatigue, Denies fever(s), Denies headache(s) and Denies weakness Eyes Denies change in vision ENT Denies dizziness, Denies headache(s), Denies hearing loss, Denies nasal congestion, Denies sinus pain, Denies sinus pressure and Denies sore throat Card Denies chest pain, Denies lightheadedness, Denies dyspnea and Denies other (palpitations) Resp Denies cough, Denies dyspnea and Denies wheezing GI Denies abdominal pain, Denies melena, Denies hematochezia, Denies change in bowel habits, Denies dyspepsia and Denies nausea Denies hematuria and Denies dysuria Musc Denies abnormal gait, Denies myalgias, Denies arthralgias, Denies numbness and Denies tingling Skin/Breast Denies rash, Denies unusual bruising and Denies wounds Neuro Denies abnormal gait, Denies dizziness, Denies headache(s), Denies memory loss, Denies numbness, Denies Sensory deficit (Neuro), Denies tingling and Denies weakness Psych Denies anxiety, Denies depression and Denies memory loss Endo Denies cold intolerance, Denies fatigue, Denies heat intolerance, Denies polydipsia and Denies polyuria Jp/Lymph Denies easy bleeding and Denies easy bruising Aller/Immun Denies wheezing Physical exam (Primary Care) Vital Signs: Last Vital Signs Temp 97.4 F 11/26/23 12:15 Pulse 63 11/26/23 12:15 Resp 14 11/26/23 12:15 BP 98/70 11/26/23 12:15 Pulse Ox 98 11/26/23 12:15 Oxygen Delivery Method Room Air 11/26/23 12:15 BMI result Body Mass Index 27.1 Tobacco/Smoking Status: Tobacco use Status Tobacco use date assessed 11/26/23 11/26/23 12:18 Patient Tobacco Use Status Never used Tobacco 11/26/23 12:18 e-Cigarette/Vaping Use Never Used 11/26/23 12:18 PHQ-9: PHQ-9 Score PHQ-9: Total score 0 11/26/23 13:04 Depression Screening Interpretation: Negative Thrive Assessment: Date of Thrive Assessment Date Thrive assessed 11/26/23 11/26/23 12:18 Currently or been in a relationship where the following occur: No concerns reported Const General: no acute distress, well developed, alert and awake Nutritional Appearance: well nourished Orientation/consciousness: patient oriented x3 HENMT Head: Yes normocephalic and Yes atraumatic Ears: hearing grossly normal bilaterally and TM's normal bilaterally General nose exam: Normal external nose present and Normal nares present Mouth: Normal oral and palatal mucosa present and moist mucous membranes Teeth and gingiva: dentition normal Throat: Yes posterior oropharynx normal Eyes General: appearance normal, both eyes and all related structures Pupils: Equal, round and reactive pupils present and Pupil accommodation reflex normal EOM: EOMs intact bilaterally Neck Neck: Yes normal visual inspection, Yes no lymphadenopathy and Yes trachea midline Thyroid: Thyroid normal Carotids: no bruits Lymphatic: no lymphadenopathy noted Chest Chest palpation & inspection: normal inspection of the chest Resp Effort & Inspection: normal respiratory effort Auscultation: clear to auscultation bilaterally Cardio Rate: regular rate Rhythm: regular rhythm Heart sounds: S1 normal heart sound present, S2 normal heart sound present, no gallops, no murmurs and no rubs Bruits: no abdominal aortic bruits and no carotid bruits GI Palpation (GI): No Abdominal aortic bruit present, Soft to palpation, nontender, No hepatosplenomegaly present and No Rebound tenderness present Auscultation: normal bowel sounds General: Yes no CVA tenderness Back/Spine/Pelvis Back: no CVA tenderness Cervical Spine: cervical ROM normal and No Cervical spine tenderness Thoracic/Lumbar Spine: thoraco-lumbar ROM normal, No pain with thoraco-lumbar ROM, No thoracic spinal tenderness and No lumbar spinal tenderness Skin Lesions: no lesions Rashes: no rashes Trauma: no lacerations or abrasions Wounds: no wounds Nails: normal Neuro General: patient oriented x3 and No gait normal Cranial nerves: Yes Equal, round and reactive pupils present Cognition (Neuro): normal cognition Gait exam (Neuro): gait abnormal and Assisted gait required (Cane) Sensory Exam: No Sensory deficit (Neuro) Deep tendon reflexes (DTR's): Right patellar reflex intensity grade: 2+ and Left patellar reflex intensity grade: 2+ Extrem General: Yes normal to inspection and No edema Psych Appearance: grossly normal Affect: normal affect Attitude: cooperative Thought process: Normal thought process present Coding Level of Care Code Est Pt Level 4 (63954) Diagnoses Hyperlipidemia E78.5 Lower extremity weakness R29.898 Screening for colon cancer Z12.11 Renal insufficiency N28.9 Screening for osteoporosis Z13.820 Breast cancer screening by mammogram Z12.31 Adult general medical exam Z00.00 Additional Codes LEXX-7 Assessment Billing - LEXX-7 Assessment Tool: LEXX-7 Assessment 40488 ([id number]) Assessment & Plan Assessment & Plan (1) Hyperlipidemia: Code(s): E78.5 - Hyperlipidemia, unspecified Category: Medical Plan: Lipids?well?controlled?on?atorvastatin Continue?current?medication (2) Lower extremity weakness: Code(s): R29.898 - Other symptoms and signs involving the musculoskeletal system Category: Medical Plan: Mild?left?lower?extremity?weakness. No?other?focal?neurologic?deficits. LLE?4/5?strength.??RLE?5/5?strength Patient?is?walking?steadily Continue?exercise Use?cane?if?feeling?unsteady She?will?let?me?know?if?feeling?weaker?or?more?unsteady - would?start?physical?therapy (3) Screening for colon cancer: Code(s): Z12.11 - Encounter for screening for malignant neoplasm of colon Category: Medical Plan: Cologuard?test?order (4) Renal insufficiency: Code(s): N28.9 - Disorder of kidney and ureter, unspecified Category: Medical Plan: She?had?mild?jump?in?her?creatinine?level?and?mild?decreased?GFR Hydrate?well Will?recheck?renal?function?prior?to?next?visit (5) Screening for osteoporosis: Code(s): Z13.820 - Encounter for screening for osteoporosis Category: Medical Plan: Due?for?bone?density?testing-ordered (6) Breast cancer screening by mammogram: Code(s): Z12.31 - Encounter for screening mammogram for malignant neoplasm of breast Category: Medical Plan: Last?mammogram?in?March?and?will?be?due?again?this?March Ordered (7) Adult general medical exam: Code(s): Z00.00 - Encounter for general adult medical examination without abnormal findings Category: Medical Plan: 73-year-old?female?presents?for?an?extended?exam Encouraged?healthy?diet?with?active?lifestyle?and?plenty?of?exercise Orders: Orders XR DEXA axial skeleton Today M81.0 - Age-related osteoporosis without current pathological fracture MM tomosynthesis screening BI Today Z12.31 - Encounter for screening mammogram for malignant neoplasm of breast Basic Metabolic Panel Today N28.9 - Disorder of kidney and ureter, unspecified Referrals Cologuard Test Z12.11 - Encounter for screening for malignant neoplasm of colon
[2023-11-26 12:15] VITALS: BP 98/70; PULSE 63; RESP 14; TEMP 36.3; O2SAT 98; BMI 27.1
== END 2023-11-26 13:19 | disposition home or self-care (01) ==
PROVIDERS: PCP Family Medicine; Visit Provider Family Medicine
DX: E78.5 Hyperlipidemia, unspecified (principal); R29.898 Other symptoms and signs involving the musculoskeletal system; Z12.11 Encounter for screening for malignant neoplasm of colon; N28.9 Disorder of kidney and ureter, unspecified; Z13.820 Encounter for screening for osteoporosis; Z12.31 Encounter for screening mammogram for malignant neoplasm of breast; Z00.00 Encounter for general adult medical examination without abnormal findings

== ENCOUNTER → 2023-11-26 11:17 | Outpatient (BNVA) | payer MEDICARE, SELFPAY | PROVIDERS: PCP Family Medicine; Visit Provider Family Medicine | DX: Z00.01 Encounter for general adult medical examination with abnormal findings (principal); E78.5 Hyperlipidemia, unspecified; R29.898 Other symptoms and signs involving the musculoskeletal system; N28.9 Disorder of kidney and ureter, unspecified | CPT/HCPCS: 96127; 99212 ==

== ENCOUNTER 2024-03-01 11:36 | Outpatient (AMB) | payer MEDICARE, SELFPAY ==
--- NOTE | 2024-03-01 11:59 | A.OFFPC_ITS ---
Vital Signs 03/01/24 12:02 Height 5 ft 3 in Weight 152 lb 8 oz BMI 27.0 BP 96/64 Blood Pressure Location Lt brachial Position Sitting Respiration 12 Pulse 61 Pulse Source Pulse Oximeter Temp 97.9 F Temp Source Oral Pulse Oximetry (%) 96 Oxygen Delivery Method Room Air Intake Visit Reasons: f/u chronic conditions, health maintenance Allergies carbamazepine [From Tegretol] Allergy (Mild, Verified 11/26/23 12:14) SKIN REACTION lithium [[place]] Allergy (Mild, Verified 11/26/23 12:14) SWELLING From Seroquel Allergy (Mild, Uncoded 11/26/23 12:14) ? Tobacco use date assessed: 11/26/23 Dental Screening Dental Screen Date: 11/26/23 HPI f/u chronic conditions, health maintenance HPI Details 73 y/o female presents to f/u mild renal insufficiency, health maintenance. No recent labs to review. Mammogram and bone density scheduled March. [facility] Surgical History History of partial hysterectomy Family History Other Mental health disorder Social History (Updated 11/26/23 @ 12:12 by Luzma Kowalski [facility] Housing: Condominium Alcohol intake: never Patient Tobacco Use Status: Never used Tobacco e-Cigarette/Vaping Use: Never Used Second Hand Smoke Exposure: No Special joanie needs: No service: No Current occupational status: retired Cognitive needs: No Hearing needs: No Vision needs: Yes (reading glasses) Questionnaire PHQ-9 Over the last 2 weeks, how often have you been bothered by any of the following problems? 1. Little interest or pleasure in doing things: not at all 2. Feeling down, depressed, or hopeless: not at all 3. Trouble falling or staying asleep, or sleeping too much: not at all 4. Feeling tired or having little energy: not at all 5. Poor appetite or overeating: not at all 6. Feeling bad about yourself - or that you are a failure or have let yourself or your family down: not at all 7. Trouble concentrating on things, such as reading the newspaper or watching television: not at all 8. Moving or speaking so slowly that other people could have noticed. Or the opposite - being so fidgety or restless that you have been moving around a lot more than usual: not at all 9. Thoughts that you would be better off or of hurting yourself in some way: not at all Total score: 0 Depression Screening Interpretation: Negative Depression Screening Done: Yes [id number] - PHQ-9 Billing: Yes Source: Developed by Drs. Slade Naik, Angie Morillo, Joaquín Franco and colleagues, with an educational nayeli from [employer]. Thrive Questionnaire Date Thrive assessed: 11/26/23 I am a: Patient What is your living situation today?: I have a steady place to live Within the past 12 months, did the food you bought not last and you didn't have the money to get more?: Never true Within the past 12 months, did you worry whether your food would run out before you got money to buy more?: Never true Do you have trouble paying for medicines?: No Do you have trouble getting transportation to medical appointments?: No Do you have trouble paying your heating and electricity bill?: No Do you have trouble taking care of your child, family member or friend?: No Do you have trouble with day-to-day activities such as bathing, preparing meals, shopping, managing finances, etc.?: No Are you currently unemployed and looking for a job?: No Are you interested in more education?: No Please select the resources that you would like help with: None Currently or been in a relationship where the following occur: No concerns reported THRIVE Score: 0 LEXX-7 AMB Questionnaire LEXX-7 Date LEXX - 7 assessed: 03/01/24 Feeling nervous, anxious, or on edge: 0 = Not at all Not being able to stop or control worryin = Not at all Worrying too much about different things: 0 = Not at all Trouble relaxin = Not at all Being so restless that it is hard to sit still: 0 = Not at all Becoming easily annoyed or irritable: 0 = Not at all Feeling afraid as if something awful might happen: 0 = Not at all Total LEXX-7 score (0-4 normal; 5-9 mild; 10-14 moderate; 15-21 severe): 0 Source: Developed by Drs. Slade Naik, Angie Morillo, Joaquín Franco and colleagues, with an educational nayeli from [employer]. LEXX-7 Assessment Billing LEXX-7 Assessment Tool: LEXX-7 Assessment 79898 Review of Systems Const Denies chills, Denies fatigue, Denies fever(s), Denies headache(s) and Denies weakness ENT Denies dizziness and Denies headache(s) Card Denies dyspnea Resp Denies cough, Denies dyspnea, Denies wheezing and Denies other (shortness of breath) Musc Denies numbness and Denies tingling Neuro Denies dizziness, Denies headache(s), Denies numbness, Denies tingling and Denies weakness Psych Denies anxiety and Denies depression Endo Denies fatigue Aller/Immun Denies wheezing Physical exam (Primary Care) Vital Signs: Last Vital Signs Temp 97.9 F 03/01/24 12:02 Pulse 61 03/01/24 12:02 Resp 12 03/01/24 12:02 BP 96/64 03/01/24 12:02 Pulse Ox 96 03/01/24 12:02 Oxygen Delivery Method Room Air 03/01/24 12:02 BMI result Body Mass Index 27.0 Tobacco/Smoking Status: Tobacco use Status Tobacco use date assessed 11/26/23 03/01/24 11:59 Patient Tobacco Use Status Never used Tobacco 03/01/24 11:59 e-Cigarette/Vaping Use Never Used 03/01/24 11:59 PHQ-9: PHQ-9 Score PHQ-9: Total score 0 03/01/24 12:07 Depression Screening Interpretation: Negative Thrive Assessment: Date of Thrive Assessment Date Thrive assessed 11/26/23 03/01/24 11:59 Currently or been in a relationship where the following occur: No concerns reported Const General: well developed; No acute distress Nutritional Appearance: well nourished Orientation/consciousness: patient oriented x3 HENMT Head: Yes normocephalic and Yes atraumatic Eyes General: appearance normal, both eyes and all related structures Pupils: Equal, round and reactive pupils present EOM: EOMs intact bilaterally Resp Effort & Inspection: normal respiratory effort Neuro General: patient oriented x3 and gait normal Cranial nerves: Yes Equal, round and reactive pupils present Psych Affect: normal affect Coding Level of Care Code Est Pt Level 3 (78789) Diagnoses Renal insufficiency N28.9 Breast cancer screening by mammogram Z12.31 Screening for osteoporosis Z13.820 Additional Codes LEXX-7 Assessment Billing - LEXX-7 Assessment Tool: LEXX-7 Assessment 12275 ([id number]) PHQ-9 - 27285 - PHQ-9 Billing: Yes ([id number]) Assessment & Plan Assessment & Plan (1) Renal insufficiency: Code(s): N28.9 - Disorder of kidney and ureter, unspecified Category: Medical Plan: Mild?renal?insufficiency?at?last?visit Had?ordered?labs?but?she?has?not?gotten?those?done?yet?and?will?do?so?today. Patient?says?she?still?i s?not?drinking?much?water?and?I?strongly?encouraged?that?she?increase?her?water? intake (2) Breast cancer screening by mammogram: Code(s): Z12.31 - Encounter for screening mammogram for malignant neoplasm of breast Category: Medical Plan: Has?appointment?March (3) Screening for osteoporosis: Code(s): Z13.820 - Encounter for screening for osteoporosis Category: Medical Plan: Has?appointment?March Orders: Orders Comprehensive Steward. Panel Fast Today Z00.00 - Encounter for general adult medical examination without abnormal findings Complete Blood Count Auto Diff Today Z00.00 - Encounter for general adult medical examination without abnormal findings UA and rflx microscopic Today Z00.00 - Encounter for general adult medical examination without abnormal findings Lipid Panel Today Z00.00 - Encounter for general adult medical examination without abnormal findings TSH reflex Free T4 Today Z00.00 - Encounter for general adult medical examination without abnormal findings Microalbumin, Random (w Creat) Today I10 - Essential (primary) hypertension
[2024-03-01 12:02] VITALS: BP 96/64; PULSE 61; RESP 12; TEMP 36.6; O2SAT 96; BMI 27.0
== END 2024-03-01 12:58 | disposition home or self-care (01) ==
PROVIDERS: PCP Family Medicine; Visit Provider Family Medicine
DX: N28.9 Disorder of kidney and ureter, unspecified (principal); Z12.31 Encounter for screening mammogram for malignant neoplasm of breast; Z13.820 Encounter for screening for osteoporosis

== ENCOUNTER 2024-03-01 12:50 | Outpatient (REF) | payer MEDICARE, SELFPAY ==
[2024-03-01 14:36] LABS: Appearance Urine Clear; Color Urine Yellow; Glucose Urine UA Negative (Negative); Leukocyte Esterase Urine Large (3+) (Negative); Nitrite Urine Negative (Negative); PH 7.5 (5.0-9.0); Specific Gravity - Urine 1.025 (1.005-1.025); UMIC TRIGGER UA YES; Urine Blood Negative (Negative); Urine Ketones Negative (Negative); Urine Protein Negative (Neg-Trace)
[2024-03-01 14:44] LABS: Bacteria Urine None Seen (None Seen); Hyaline Casts Urine 0-2 /LPF (0-2); RBC Urine 0-2 /HPF (0-2); WBC Urine 21-50 /HPF (0-5)
[2024-03-01 14:48] LABS: MANUAL DIFF FLAG NO
[2024-03-01 14:57] LABS: Hematocrit 41.2 % (37.0-47.0); Imm Gran Abs Auto 0.01 X10*3/uL (0.00-0.03); Imm Gran Pct Auto 0.2 % (0.0-0.4); Lymphocytes Absolute Auto 2.2 X10*3/uL (1.2-4.9); Lymphocytes Percent Auto 43.5 % (20-40); Mean Corpuscular Hemoglobin 31.9 pg (27.0-33.0); Mean Corpuscular Volume 93.8 fL (80.0-98.0); Mean Platelet Volume 8.9 fL (9.4-12.3); Monocytes Absolute Auto 0.3 X10*3/uL (0.1-1.2); Monocytes Percent Auto 6.2 % (2-11); Neutrophils Absolute Auto 2.6 x10*3/uL (2.0-8.3); Neutrophils Percent Auto 50.1 % (45-73); Platelet Count 251 X10*3/uL (160-400); Red Blood Count 4.39 X10*6/uL (4.20-5.50); Red Cell Distribution Width 12.8 % (11.0-16.0); White Blood Count 5.2 X10*3/uL (4.8-10.8)
[2024-03-01 15:14] LABS: Creatinine Urine 169.45 mg/dL; Microalbum/Creatinine Ratio Ur 5.3 ug/mg cr (<30)
[2024-03-01 15:44] LABS: Alanine Aminotransferase 18 U/L (0-31); Albumin Level 3.8 g/dL (3.5-5.0); Anion Gap 8 (12-20); Aspartate Amino Transferase 23 U/L (5-31); Bilirubin Total 1.2 mg/dL (0.0-1.0); Blood Urea Nitrogen 11 mg/dL (9-16); Calcium 9.2 mg/dL (8.4-10.2); Carbon Dioxide 29 mmol/L (22-29); Chloride 108 mmol/L (96-108); Cholesterol 144 mg/dL (<200); Estimated Glomerular Filt Rate > 60; Glucose Fasting 98 mg/dL (60-99); Glucose Random 98 mg/dL (60-115); HDL Cholesterol 67 mg/dL (>40); LDL Cholesterol Calculated 52 mg/dL (<100); Potassium 4.3 mmol/L (3.3-5.1); Sodium 141 mmol/L (135-145); Total Protein 7.2 g/dL (6.5-8.0); Triglycerides 129 mg/dL (<150)
[2024-03-01 17:16] LABS: Alkaline Phosphatase 56 U/L (39-117)
== END 2024-03-01 12:51 | disposition home or self-care (01) ==
LOC: HO.WFDLDS 12:50
PROVIDERS: Visit Provider Family Medicine
DX: I10 Essential (primary) hypertension (principal); N28.9 Disorder of kidney and ureter, unspecified
CPT/HCPCS: 36415; 80048; 80053; 80061; 81001; 82043; 82570; 84443; 85025; 96127; 99212

== ENCOUNTER 2024-04-12 10:23 | Outpatient (REF) | payer MEDICARE, SELFPAY ==
[2024-04-12 12:48] LABS: Appearance Urine Cloudy; Color Urine Yellow; Glucose Urine UA Negative (Negative); Leukocyte Esterase Urine Large (3+) (Negative); Nitrite Urine Negative (Negative); UMIC TRIGGER UA YES; Urine Blood Trace (Negative); Urine Ketones Negative (Negative); Urine Protein Trace mg/dL (Neg-Trace)
[2024-04-12 12:52] LABS: Bacteria Urine None Seen (None Seen); RBC Urine 0-2 /HPF (0-2); WBC Urine >50 /HPF (0-5)
== END 2024-04-12 10:24 | disposition home or self-care (01) ==
LOC: HO.HMGCLDS 10:23
PROVIDERS: PCP Family Medicine; Visit Provider Family Medicine
DX: Z00.00 Encounter for general adult medical examination without abnormal findings (principal)
CPT/HCPCS: 81001

== ENCOUNTER → 2024-04-13 10:45 | Outpatient (BNV) | payer MEDICARE, SELFPAY | PROVIDERS: PCP Family Medicine; Visit Provider Internal Medicine | DX: Z12.31 Encounter for screening mammogram for malignant neoplasm of breast (principal) | CPT/HCPCS: 77063; 77067 ==

== ENCOUNTER 2024-04-13 10:52 | Outpatient (REF) | payer MEDICARE, SELFPAY | END 2024-04-13 10:53 | disposition home or self-care (01) | LOC: HO.MAMMO 10:52 | PROVIDERS: PCP Family Medicine; Visit Provider Family Medicine | DX: Z12.31 Encounter for screening mammogram for malignant neoplasm of breast (principal); M81.0 Age-related osteoporosis without current pathological fracture | CPT/HCPCS: 77063; 77067; 77080 ==

== ENCOUNTER 2024-04-22 14:34 | Outpatient (AMB) | payer MEDICARE, SELFPAY ==
--- NOTE | 2024-04-22 14:51 | A.OFFPC_ITS ---
Vital Signs 04/22/24 14:54 Height 5 ft 3 in Weight 155 lb 4 oz BMI 27.5 BP 110/68 Blood Pressure Location Lt brachial Position Sitting Respiration 12 Pulse 67 Pulse Source Pulse Oximeter Temp 97.7 F Temp Source Oral Pulse Oximetry (%) 98 Oxygen Delivery Method Room Air Intake Visit Reasons: f/u renal insufficiency, labs Intake Note: follow up labs Allergies carbamazepine [From Tegretol] Allergy (Mild, Verified 04/22/24 14:51) SKIN REACTION lithium [[place]] Allergy (Mild, Verified 04/22/24 14:51) SWELLING From Seroquel Allergy (Mild, Uncoded 11/26/23 12:14) ? Medication List - Last Reconciled 04/22/24 by Ran Florentino MD atorvastatin 40 mg PO DAILY 90 days calcium carbonate ([place]) 168 mg PO TID cholecalciferol (vitamin D3) 50 mcg PO DAILY 90 days escitalopram oxalate 20 mg PO DAILY escitalopram oxalate 20 mg PO DAILY hydroxyzine HCl 25 mg PO BID PRN lorazepam 0.5 mg PO DAILY olanzapine 10 mg PO BEDTIME Tobacco use date assessed: 11/26/23 Dental Screening Dental Screen Date: 11/26/23 HPI f/u renal insufficiency, labs HPI Details 73 y/o female presents to f/u renal insu fficiency, labs. Labs drawn 03/01/24. Reviewed labs with pt. Triglycerides 129. TC 144. LDL 52. HDL 67. Estimated GFR >60. Creatinine level 0.88. Recent mammogram was fine. She takes cholecalciferol 50mcg daily. Bone density shows osteopenia but not osteoporosis. [facility] Surgical History History of partial hysterectomy Family History Other Mental health disorder Social History (Updated 11/26/23 @ 12:12 by MIRANDA Whitt) Housing: Condominium Alcohol intake: never Patient Tobacco Use Status: Never used Tobacco e-Cigarette/Vaping Use: Never Used Second Hand Smoke Exposure: No Special joanie needs: No service: No Current occupational status: retired Cognitive needs: No Hearing needs: No Vision needs: Yes (reading glasses) Questionnaire PHQ-9 Over the last 2 weeks, how often have you been bothered by any of the following problems? 1. Little interest or pleasure in doing things: not at all 2. Feeling down, depressed, or hopeless: not at all 3. Trouble falling or staying asleep, or sleeping too much: not at all 4. Feeling tired or having little energy: not at all 5. Poor appetite or overeating: not at all 6. Feeling bad about yourself - or that you are a failure or have let yourself or your family down: not at all 7. Trouble concentrating on things, such as reading the newspaper or watching television: not at all 8. Moving or speaking so slowly that other people could have noticed. Or the opposite - being so fidgety or restless that you have been moving around a lot more than usual: not at all 9. Thoughts that you would be better off or of hurting yourself in some way: not at all Total score: 0 Source: Developed by Drs. Slade Naik, Angie Morillo, Joaquín Franco and colleagues, with an educational nayeli from [employer]. Thrive Questionnaire Date Thrive assessed: 11/26/23 I am a: Patient What is your living situation today?: I have a steady place to live Within the past 12 months, did the food you bought not last and you didn't have the money to get more?: Never true Within the past 12 months, did you worry whether your food would run out before you got money to buy more?: Never true Do you have trouble paying for medicines?: No Do you have trouble getting transportation to medical appointments?: No Do you have trouble paying your heating and electricity bill?: No Do you have trouble taking care of your child, family member or friend?: No Do you have trouble with day-to-day activities such as bathing, preparing meals, shopping, managing finances, etc.?: No Are you currently unemployed and looking for a job?: No Are you interested in more education?: No Please select the resources that you would like help with: None Currently or been in a relationship where the following occur: No concerns reported THRIVE Score: 0 AUDIT C Alcohol Use Questionnaire (AUDIT-C) 1. How often do you have a drink containing alcohol?: Monthly or less 2. How many drinks containing alcohol do you have on a typical day when you are drinking?: 1 or 2 3. How often do you have six or more drinks on one occasion?: Never Total Score: 1 LEXX-7 AMB Questionnaire LEXX-7 Date LEXX - 7 assessed: 03/01/24 Feeling nervous, anxious, or on edge: 0 = Not at all Not being able to stop or control worryin = Not at all Worrying too much about different things: 0 = Not at all Trouble relaxin = Not at all Being so restless that it is hard to sit still: 0 = Not at all Becoming easily annoyed or irritable: 0 = Not at all Feeling afraid as if something awful might happen: 0 = Not at all Total LEXX-7 score (0-4 normal; 5-9 mild; 10-14 moderate; 15-21 severe): 0 Source: Developed by Drs. Slade Naik, Angie Morillo, Joaquín Franco and colleagues, with an educational nayeli from [employer]. Review of Systems Const Denies chills, Denies fatigue, Denies fever(s), Denies headache(s) and Denies weakness ENT Denies dizziness and Denies headache(s) Card Denies dyspnea Resp Denies cough, Denies dyspnea, Denies wheezing and Denies other (shortness of breath) Musc Denies numbness and Denies tingling Neuro Denies dizziness, Denies headache(s), Denies numbness, Denies tingling and Denies weakness Psych Denies anxiety and Denies depression Endo Denies fatigue Aller/Immun Denies wheezing Physical exam (Primary Care) Vital Signs: Last Vital Signs Temp 97.7 F 04/22/24 14:54 Pulse 67 04/22/24 14:54 Resp 12 04/22/24 14:54 BP 110/68 04/22/24 14:54 Pulse Ox 98 04/22/24 14:54 Oxygen Delivery Method Room Air 04/22/24 14:54 BMI result Body Mass Index 27.5 Tobacco/Smoking Status: Tobacco use Status Tobacco use date assessed 11/26/23 04/22/24 14:57 Patient Tobacco Use Status Never used Tobacco 04/22/24 14:57 e-Cigarette/Vaping Use Never Used 04/22/24 14:57 PHQ-9: PHQ-9 Score PHQ-9: Total score 0 04/22/24 14:57 Thrive Assessment: Date of Thrive Assessment Date Thrive assessed 11/26/23 04/22/24 14:57 Currently or been in a relationship where the following occur: No concerns reported Const General: well developed; No acute distress Nutritional Appearance: well nourished Orientation/consciousness: patient oriented x3 HENMT Head: Yes normocephalic and Yes atraumatic Eyes General: appearance normal, both eyes and all related structures Pupils: Equal, round and reactive pupils present EOM: EOMs intact bilaterally Resp Effort & Inspection: normal respiratory effort Neuro General: patient oriented x3 and gait normal Cranial nerves: Yes Equal, round and reactive pupils present Psych Affect: normal affect Coding Level of Care Code Est Pt Level 4 (77864) Diagnoses Renal insufficiency N28.9 Breast cancer screening by mammogram Z12.31 Screening for osteoporosis Z13.820 Assessment & Plan Assessment & Plan (1) Renal insufficiency: Code(s): N28.9 - Disorder of kidney and ureter, unspecified Category: Medical Plan: Renal?function?is?within?normal?limits Continue?good?hydration (2) Breast cancer screening by mammogram: Code(s): Z12.31 - Encounter for screening mammogram for malignant neoplasm of breast Category: Medical Plan: Mammogram?was?normal Continue?annual?screening (3) Screening for osteoporosis: Code(s): Z13.820 - Encounter for screening for osteoporosis Category: Medical Plan: History?of?osteoporosis. She?had?been?on?alendronate?years?ago Bone?density?shows osteopenia?but?not?osteoporosis. Continue?calcium?and?vitamin-D?which?she?takes?[id number] Will?continue?to?monitor Also?advised?weight-bearing?exercise?as?tolerated Orders: Orders Comprehensive Met. Panel Today N28.9 - Disorder of kidney and ureter, unspecified Lipid Panel Today E78.5 - Hyperlipidemia, unspecified, Z00.00 - Encounter for general adult medical examination without abnormal findings
[2024-04-22 14:54] VITALS: BP 110/68; PULSE 67; RESP 12; TEMP 36.5; O2SAT 98; BMI 27.5
== END 2024-04-22 15:41 | disposition home or self-care (01) ==
PROVIDERS: PCP Family Medicine; Visit Provider Family Medicine
DX: N28.9 Disorder of kidney and ureter, unspecified (principal); Z12.31 Encounter for screening mammogram for malignant neoplasm of breast; Z13.820 Encounter for screening for osteoporosis

== ENCOUNTER → 2024-04-22 14:34 | Outpatient (BNVA) | payer MEDICARE, SELFPAY | PROVIDERS: PCP Family Medicine; Visit Provider Family Medicine | DX: N28.9 Disorder of kidney and ureter, unspecified (principal) | CPT/HCPCS: 99212 ==

== ENCOUNTER 2024-06-03 09:57 | Outpatient (REF) | payer MEDICARE, SELFPAY ==
[2024-06-03 13:52] LABS: Appearance Urine Clear; Color Urine Yellow; Glucose Urine UA Negative (Negative); Leukocyte Esterase Urine Large (3+) (Negative); Nitrite Urine Negative (Negative); PH 6.5 (5.0-9.0); Specific Gravity - Urine 1.015 (1.005-1.025); UMIC TRIGGER UA YES; Urine Blood Negative (Negative); Urine Ketones Negative (Negative); Urine Protein Negative (Neg-Trace)
[2024-06-03 13:57] LABS: Bacteria Urine None Seen (None Seen); Hyaline Casts Urine 0-2 /LPF (0-2); RBC Urine 0-2 /HPF (0-2); WBC Urine 21-50 /HPF (0-5)
[2024-06-03 14:07] LABS: Alanine Aminotransferase 19 U/L (0-31); Albumin Level 3.8 g/dL (3.5-5.0); Alkaline Phosphatase 55 U/L (39-117); Anion Gap 10 (12-20); Aspartate Amino Transferase 26 U/L (5-31); Bilirubin Total 1.3 mg/dL (0.0-1.0); Blood Urea Nitrogen 11 mg/dL (9-16); Carbon Dioxide 27 mmol/L (22-29); Chloride 109 mmol/L (96-108); Cholesterol 144 mg/dL (<200); Estimated Glomerular Filt Rate > 60; Glucose Random 90 mg/dL (60-115); HDL Cholesterol 69 mg/dL (>40); LDL Cholesterol Calculated 52 mg/dL (<100); Potassium 4.1 mmol/L (3.3-5.1); Sodium 142 mmol/L (135-145); Triglycerides 117 mg/dL (<150)
== END 2024-06-03 09:58 | disposition home or self-care (01) ==
LOC: HO.HMGCLDS 09:57
PROVIDERS: PCP Family Medicine; Visit Provider Family Medicine
DX: Z00.00 Encounter for general adult medical examination without abnormal findings (principal); N28.9 Disorder of kidney and ureter, unspecified; E78.5 Hyperlipidemia, unspecified
CPT/HCPCS: 36415; 80053; 80061; 81001

== ENCOUNTER 2024-06-10 13:52 | Outpatient (AMB) | payer MEDICARE, SELFPAY ==
--- NOTE | 2024-06-10 14:08 | MHC.PC.OV ---
Intake Visit Reasons: MAWV Allergies carbamazepine [From Tegretol] Allergy (Mild, Verified 04/22/24 14:51) SKIN REACTION lithium [[place]] Allergy (Mild, Verified 04/22/24 14:51) SWELLING From Seroquel Allergy (Mild, Uncoded 11/26/23 12:14) ? Tobacco use date assessed: 11/26/23 Dental Screening Dental Screen Date: 11/26/23 [facility] Surgical History History of partial hysterectomy Family History Other Mental health disorder Social History (Updated 11/26/23 @ 12:12 by MIRANDA Whitt) Housing: Condominium Alcohol intake: never Patient Tobacco Use Status: Never used Tobacco e-Cigarette/Vaping Use: Never Used Second Hand Smoke Exposure: No Special joanie needs: No service: No Current occupational status: retired Cognitive needs: No Hearing needs: No Vision needs: Yes (reading glasses) Questionnaire Thrive Questionnaire Date Thrive assessed: 04/22/24 I am a: Patient What is your living situation today?: I have a steady place to live Within the past 12 months, did the food you bought not last and you didn't have the money to get more?: Never true Within the past 12 months, did you worry whether your food would run out before you got money to buy more?: Never true Do you have trouble paying for medicines?: No Do you have trouble getting transportation to medical appointments?: No Do you have trouble paying your heating and electricity bill?: No Do you have trouble taking care of your child, family member or friend?: No Do you have trouble with day-to-day activities such as bathing, preparing meals, shopping, managing finances, etc.?: No Are you currently unemployed and looking for a job?: No Are you interested in more education?: No Please select the resources that you would like help with: None Currently or been in a relationship where the following occur: No concerns reported THRIVE Score: 0 LEXX-7 AMB Questionnaire LEXX-7 Date LEXX - 7 assessed: 03/01/24 Source: Developed by Drs. Slade Naik, Angie B.W. Joaquín Morillo and colleagues, with an educational nayeli from [employer]. Physical exam (Primary Care) Tobacco/Smoking Status: Tobacco use Status Tobacco use date assessed 11/26/23 04/22/24 15:48 Patient Tobacco Use Status Never used Tobacco 04/22/24 15:48 e-Cigarette/Vaping Use Never Used 04/22/24 15:48 Thrive Assessment: Date of Thrive Assessment Date Thrive assessed 04/22/24 06/10/24 13:53 Currently or been in a relationship where the following occur: No concerns reported Coding
--- NOTE | 2024-06-10 14:10 | A.OFFVIS_ITS ---
Intake Vital Signs 06/10/24 14:22 Height 5 ft 3 in Weight 155 lb 2 oz BMI 27.5 BP 104/68 Blood Pressure Location Rt brachial Position Sitting Respiration 14 Pulse 72 Pulse Source Pulse Oximeter Pulse Oximetry (%) 98 Oxygen Delivery Method Room Air Intake Visit Reasons: MAWV Intake Note: Medical annual wellness Pharmacovigilance Specialist Required: No Accompanied by: Spouse Allergies carbamazepine [From Tegretol] Allergy (Mild, Verified 06/10/24 14:20) SKIN REACTION lithium [[place]] Allergy (Mild, Verified 06/10/24 14:20) SWELLING From Seroquel Allergy (Mild, Uncoded 06/10/24 14:20) ? Medication List - Last Reconciled 06/10/24 by Josseline Kumari PA-C atorvastatin 40 mg PO DAILY 90 days calcium carbonate ([place]) 168 mg PO TID cholecalciferol (vitamin D3) 50 mcg PO DAILY 90 days escitalopram oxalate 20 mg PO DAILY hydroxyzine HCl 25 mg PO BID PRN lorazepam 0.5 mg PO DAILY olanzapine 10 mg PO BEDTIME HPI MAWV HPI Details Patient is a 74-year-old female with a significant past medical history of bipolar disorder, memory changes, hyperlipidemia, vitamin-D deficiency and renal insufficiency presenting today for a medical wellness visit. She was recently seen by her PCP a couple of months ago. States that everything is unchanged . She is overall doing well. No acute concerns today. Psych: She is accompanied today by her who states that she is stable. No recent med changes. She is still on the olanzapine, lorazepam, hydroxyzine and Lexapro. She follows closely with Dr. Gibbons. CV: Blood pressure today in the office is 104/68. Lipids controlled with atorvastatin 40 mg. No myalgias. LFTs WNL. Lipids WNL. 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 [facility] Surgical History History of partial hysterectomy Family History Other Mental health disorder Social History (Updated 11/26/23 @ 12:12 by MIRANDA Whitt) Housing: Condominium Alcohol intake: never Patient Tobacco Use Status: Never used Tobacco e-Cigarette/Vaping Use: Never Used Second Hand Smoke Exposure: No Special joanie needs: No service: No Current occupational status: retired Cognitive needs: No Hearing needs: No Vision needs: Yes (reading glasses) Questionnaire Medicare Wellness Checkup [age] What gender do you identify with?: female During the past 4 weeks, how much have you been bothered by emotional problems such as feeling anxious, depressed, irritable, sad or downhearted, and blue?: not at all During the past 4 weeks, has your physical & emotional health limited your social activities with family, friends, neighbors, or groups?: not at all During the past 4 weeks, how much bodily pain have you generally had?: no pain During the past 4 weeks, was someone available to help you if you needed & wanted help?: yes, as much as I wanted During the past 4 weeks, what was the hardest physical activity you could do for at least 2 minutes?: very heavy Can you get to places out of walking distance without help? (For eg., can you travel alone on buses, taxis or drive your car?): Yes Can you go shopping for groceries or clothes without someone's help?: Yes Can you prepare your own meals?: Yes Can you do your housework without help?: Yes Because of any health problems, do you need the help of another person with your personal care needs such as eating, bathing, dressing or getting around the house?: No Can you handle your own money without help?: Yes During the past 4 weeks, how would you rate your health in general?: excellent During the past 4 weeks how have things been going for you?: very well; could hardly better Are you having difficulties driving your car?: no Do you always fasten your seat belt when you are in a car?: yes, usually During past 4 weeks, have you been bothered by the following: never: Falling or dizzy when standing up, Sexual problems?, Trouble eating well?, Teeth or denture problems?, Problems using the telephone? and Tiredness or fatigue? Have you fallen 2 or more times in the past year?: No Are you afraid of falling?: No Are you a smoker?: no During the past 4 weeks, how many drinks of wine, beer, or other alcoholic beverages did you have?: no alcohol at all Do you exercise for about 20 minutes 3 or more times a week?: yes, all the time Have you been given information to help with the following?: yes: Keeping track of your medications? and no: Hazards in your house that might hurt you? How often do you have trouble taking medicines the way you have been told to take them?: I always take medicine as prescribed How confident are you that you can control & manage most of your health problems?: very confident What is your race?: White Mini Mental State Exam (MMSE) Orientation What is the (year) (season) (date) (day) (month)?: year (2023), season, date (06/09), day (May) and month Where are we (state) (county) (town or city) (hospital) (floor)?: state (), county ([place]), town or city ([place]), hospital/clinic (unknown) and floor (first) Registration Name of 3 unrelated objects clearly and slowly, then ask patient to repeat all 3 of them. (1st repeat determines score. Make sure they can repeat all three): object 1 (Ball), object 2 (flag) and object 3 (tree) Attention & Calculation (CHOOSE ONE) Spell WORLD backwards (DLROW): 3 letters (dalow) Language Show patient a wristwatch & ask what it is. Repeat for pencil.: watch and pencil Ask the patient to repeat the phrase 'No ifs, ands, or buts' after you.: correct Ask the patient to 'take a piece of paper with their right hand' 'fold paper in half' 'place paper on floor': take paper in right hand Print the sentence 'CLOSE YOUR EYES' on a piece. If patient actually closes eyes then score.: followed written direction Give patient a blank piece of paper & ask to write a sentence. Score if it contains a noun & verb.: sentence contains subject and verb Ask patient to copy figure of intersecting pentagons exactly. Score if all 10 angles & 2 intersects are included.: all 10 angles present & 2 are intersected Score Score: 23 Activity of Daily Living Bathing - sponge bath, tub bath or shower: receives no assistance (gets in/out by self, if usual bathing means Dressing - getting clothes from closets & drawers, including inner/outer garments & fasteners.: gets clothes & gets completely dressed without help Toileting - going to the 'toilet room' for urine/bowel elimination & cleaning self/arranging clothes: goes to toilet room, cleans self, arranges clothes without help Transfer: moves in & out of bed and chair without help (may use support object) Continence: controls urination/bowel movements completely by self Feeding: feeds self without help Total Score: 0 Information obtained from: patient Using telephone: independent Traveling: independent Shopping: independent Preparing meals: independent Housework: independent Taking medicine: independent Managing money: independent PHQ-9 Over the last 2 weeks, how often have you been bothered by any of the following problems? 1. Little interest or pleasure in doing things: not at all 2. Feeling down, depressed, or hopeless: not at all 3. Trouble falling or staying asleep, or sleeping too much: not at all 4. Feeling tired or having little energy: not at all 5. Poor appetite or overeating: not at all 6. Feeling bad about yourself - or that you are a failure or have let yourself or your family down: not at all 7. Trouble concentrating on things, such as reading the newspaper or watching television: not at all 8. Moving or speaking so slowly that other people could have noticed. Or the opposite - being so fidgety or restless that you have been moving around a lot more than usual: not at all 9. Thoughts that you would be better off or of hurting yourself in some way: not at all Total score: 0 Depression Screening Interpretation: Negative Depression Screening Done: Yes 95583 - PHQ-9 Billing: Yes Source: Developed by Drs. Slade Naik, Angie Morillo, Joaquín Franco and colleagues, with an educational nayeli from [employer]. Physical Exam Vital Signs: Last Vital Signs Pulse 72 06/10/24 14:22 Resp 14 06/10/24 14:22 BP 104/68 06/10/24 14:22 Pulse Ox 98 06/10/24 14:22 Oxygen Delivery Method Room Air 06/10/24 14:22 BMI result Body Mass Index 27.5 Const Orientation/consciousness: patient oriented x3 HEENT Ears: hearing grossly normal bilaterally Neck Thyroid: Thyroid normal Lymphatic: no lymphadenopathy noted Resp Auscultation: clear to auscultation bilaterally Cardio Rate: regular rate Rhythm: regular rhythm Heart sounds: S1 normal heart sound present and S2 normal heart sound present GI Inspection: Yes normal to inspection Palpation (GI): Soft to palpation and Other GI palpation findings present (nontender, no cva tenderness) Auscultation: normoactive bowel sounds Rectal Exam - Female: deferred Skin General skin exam: no rashes or lesions noted Neuro General: patient oriented x3, gait normal and no focal motor deficits Office Procedures EKG Details: EKG today in office is normal sinus rhythm. No prior study to compare. EKG interpreted by Dr. Holman. [id number], Complete Assessment & Plan Assessment & Plan (1) Medicare annual wellness visit, initial: Code(s): Z00.00 - Encounter for general adult medical examination without abnormal findings Plan: EKG today. Reviewed labs with patient. Health maintenance reviewed. Offered MOLST form. They will discuss. (2) Memory changes: Code(s): R41.3 - Other amnesia Plan: Stable (3) Bipolar disorder: Code(s): F31.9 - Bipolar disorder, unspecified Plan: Currently well-controlled (4) Hyperlipidemia: Code(s): E78.5 - Hyperlipidemia, unspecified Plan: Continue atorvastatin. Reviewed labs with patient. Quality Reporting (2019) Depression/Bipolar (159/160/161/177) PHQ-9: Total score: 0 Coding Level of Care Code Medicare Subsequent (G0439) Est Pt Level 3 (79332) Diagnoses Medicare annual wellness visit, initial Z00.00 Memory changes R41.3 Bipolar disorder F31.9 Hyperlipidemia E78.5 CPT Codes EKG - CPT: 20560-[place], Complete ([id number]) Additional Codes PHQ-9 - 05270 - PHQ-9 Billing: Yes ([id number]) Advance Care Planning Advance Care Planning discussion: Declined forms Who was present: . They do have a will.
[2024-06-10 14:22] VITALS: BP 104/68; PULSE 72; RESP 14; O2SAT 98; BMI 27.5
== END 2024-06-10 15:15 | disposition home or self-care (01) ==
LOC: HO.HMCFM 13:53
PROVIDERS: PCP Family Medicine; Visit Provider Physician Assistant
DX: Z00.00 Encounter for general adult medical examination without abnormal findings (principal); R41.3 Other amnesia; F31.9 Bipolar disorder, unspecified; E78.5 Hyperlipidemia, unspecified

== ENCOUNTER → 2024-06-10 13:52 | Outpatient (BNVA) | payer MEDICARE, SELFPAY | PROVIDERS: PCP Family Medicine; Visit Provider Physician Assistant | DX: Z00.00 Encounter for general adult medical examination without abnormal findings (principal); R41.3 Other amnesia; F31.9 Bipolar disorder, unspecified; E78.5 Hyperlipidemia, unspecified; Z79.899 Other long term (current) drug therapy | CPT/HCPCS: 93005; 96127 ==

== ENCOUNTER 2024-09-13 14:31 | Outpatient (AMB) | payer MEDICARE, SELFPAY ==
--- NOTE | 2024-09-13 14:34 | MHC.PC.OV ---
Vital Signs 09/13/24 14:39 Height 5 ft 3 in Weight 154 lb 2 oz BMI 27.3 BP 118/72 Blood Pressure Location Lt brachial Position Sitting Respiration 14 Pulse 79 Pulse Source Pulse Oximeter Temp 97.9 F Temp Source Temporal Artery Scan Pulse Oximetry (%) 95 Oxygen Delivery Method Room Air Intake Visit Reasons: f/u chronic conditions Intake Note: Mai is following up today for chronic conditions. Allergies carbamazepine (From Tegretol) Allergy (Mild, Verified 09/13/24 14:37) SKIN REACTION lithium ([place]) Allergy (Mild, Verified 09/13/24 14:37) SWELLING From Seroquel Allergy (Mild, Uncoded 09/13/24 14:37) ? Medication List - Last Reconciled 09/13/24 by Ran Florentino MD atorvastatin 40 mg PO DAILY 90 days calcium carbonate ([place]) 600 mg PO ONCE cholecalciferol (vitamin D3) 50 mcg PO DAILY 90 days escitalopram oxalate 20 mg PO DAILY hydroxyzine HCl 25 mg PO BID PRN olanzapine 10 mg PO BEDTIME Tobacco use date assessed: 09/13/24 Fall risk assessment: No Falls in past year Last assessed Fall Risk: 09/13/24 Dental Screening Dental Screen Date: 09/13/24 Did you have a dental visit in the last 12 months?: Yes Did you have a dental problem in the last 6 months where you did not have access to dental care?: No Was dental information given to patient?: Patient has dentist HPI f/u chronic conditions HPI Details 74 y/o female presents to f/u chronic conditions, renal function and lipids. Has had mild renal insufficiency but appeared to have resolved. Last labs drawn 06/03/24. Reviewed labs with pt. Triglycerides 117. TC 144. LDL 52. HDL 69. She is on artovastatin 40mg daily. Creatinine level 0.82. They note memory has been good recently. [facility] Surgical History History of partial hysterectomy Family History Other Mental health disorder Social History (Updated 09/13/24 @ 14:39 by Kamille Singh MA) Housing: Condominium Alcohol intake: never Patient Tobacco Use Status: Never used Tobacco e-Cigarette/Vaping Use: Never Used Second Hand Smoke Exposure: No Use of substances other than those prescribed or required for medical reasons: No Special joanie needs: No service: No Current occupational status: retired Cognitive needs: No Hearing needs: No Vision needs: Yes (reading glasses) Questionnaire Thrive Questionnaire Date Thrive assessed: 11/26/23 I am a: Patient What is your living situation today?: I have a steady place to live Within the past 12 months, did the food you bought not last and you didn't have the money to get more?: Never true Within the past 12 months, did you worry whether your food would run out before you got money to buy more?: Never true Do you have trouble paying for medicines?: No Do you have trouble getting transportation to medical appointments?: No Do you have trouble paying your heating and electricity bill?: No Do you have trouble taking care of your child, family member or friend?: No Do you have trouble with day-to-day activities such as bathing, preparing meals, shopping, managing finances, etc.?: No Are you currently unemployed and looking for a job?: No Are you interested in more education?: No Please select the resources that you would like help with: None Currently or been in a relationship where the following occur: No concerns reported THRIVE Score: 0 LEXX-7 AMB Questionnaire LEXX-7 Date LEXX - 7 assessed: 03/01/24 Source: Developed by Drs. Slade Naik, Angie Morillo, Joaquín Franco and colleagues, with an educational nayeli from [employer]. Review of Systems Const Denies chills, Denies fatigue, Denies fever(s), Denies headache(s) and Denies weakness ENT Denies dizziness and Denies headache(s) Card Denies dyspnea Resp Denies cough, Denies dyspnea, Denies wheezing and Denies other (shortness of breath) Musc Denies numbness and Denies tingling Neuro Denies dizziness, Denies headache(s), Denies numbness, Denies tingling and Denies weakness Psych Denies anxiety and Denies depression Endo Denies fatigue Aller/Immun Denies wheezing Physical exam (Primary Care) Vital Signs: Last Vital Signs Temp 97.9 F 09/13/24 14:39 Pulse 79 09/13/24 14:39 Resp 14 09/13/24 14:39 BP 118/72 09/13/24 14:39 Pulse Ox 95 09/13/24 14:39 Oxygen Delivery Method Room Air 09/13/24 14:39 BMI result Body Mass Index 27.3 Tobacco/Smoking Status: Tobacco use Status Tobacco use date assessed 09/13/24 09/13/24 14:42 Patient Tobacco Use Status Never used Tobacco 09/13/24 14:39 e-Cigarette/Vaping Use Never Used 09/13/24 14:39 Thrive Assessment: Date of Thrive Assessment Date Thrive assessed 11/26/23 09/13/24 14:36 Currently or been in a relationship where the following occur: No concerns reported Const General: well developed; No acute distress Nutritional Appearance: well nourished Orientation/consciousness: patient oriented x3 HENMT Head: Yes normocephalic and Yes atraumatic Eyes General: appearance normal, both eyes and all related structures Pupils: Equal, round and reactive pupils present EOM: EOMs intact bilaterally Resp Effort & Inspection: normal respiratory effort Auscultation: clear to auscultation bilaterally Cardio Rate: regular rate Rhythm: regular rhythm Heart sounds: S1 normal heart sound present, S2 normal heart sound present, no gallops, no murmurs and no rubs Neuro General: patient oriented x3 and gait normal Cranial nerves: Yes Equal, round and reactive pupils present Psych Affect: normal affect Coding Level of Care Code Est Pt Level 3 (50948) Diagnoses History of stroke Z86.73 Hyperlipidemia E78.5 Renal insufficiency N28.9 Depression with anxiety F41.8 Assessment & Plan Assessment & Plan (1) History of stroke: Code(s): Z86.73 - Personal history of transient ischemic attack (TIA), and cerebral infarction without residual deficits Category: Medical Plan: History of stroke and patient is taking atorvastatin 40 mg daily. LDL cholesterol at last check was at goal less than 70 Continue atorvastatin (2) Hyperlipidemia: Code(s): E78.5 - Hyperlipidemia, unspecified Category: Medical (3) Renal insufficiency: Code(s): N28.9 - Disorder of kidney and ureter, unspecified Category: Medical Plan: Renal function labs appear within normal limits Hydrate Well (4) Depression with anxiety: Code(s): F41.8 - Other specified anxiety disorders Category: Medical Plan: She continues escitalopram. Has a therapist Her therapist has discontinued benzodiazepines due to concerns of memory changes. Continue escitalopram Follow-up with therapist as recommended Plan Encouraged memory games, learning new activities in encouraged good social interaction Orders: Orders Comprehensive Cougar. Panel Fast Today Z00.00 - Encounter for general adult medical examination without abnormal findings Complete Blood Count Auto Diff Today Z00.00 - Encounter for general adult medical examination without abnormal findings Lipid Panel Today Z00.00 - Encounter for general adult medical examination without abnormal findings, Z86.73 - Personal history of transient ischemic attack (TIA), and cerebral infarction without residual deficits UA CC w/rflx Micro + Cult Today Z00.00 - Encounter for general adult medical examination without abnormal findings TSH reflex Free T4 Today R25.1 - Tremor, unspecified, Z00.00 - Encounter for general adult medical examination without abnormal findings
[2024-09-13 14:39] VITALS: BP 118/72; PULSE 79; RESP 14; TEMP 36.6; O2SAT 95; BMI 27.3
--- OUTSIDE RECORDS SUMMARY | 2024-09-13 15:23 | XMS_ITS | Patient Health Record ---
Author Organization [facility] Address [address] [place], [place] [id number] Support Name Relationship Address Phone ALBERTO DELGADO Emergency Contact [address] [place] [address] Mai Delgado Guarantor Unknown Allergies Allergen (clinical drug ingredient) Drug/Non Drug Allergy documented on EMR Reaction Allergy Type Onset Date Status aspirin Aspirin Unknown Drug Allergy Active carbamazepine Tegretol Unknown Drug Allergy Act nicholas lithium citrate [place]ren[place] Unknown Drug Allergy A ctive Reason For Referral No Information Medications Medication SIG (Take, Route, Frequency, Duration) Notes Start Date End Date Status ALPRAZolam 0.5 MG 2 TABLETS Orally ONC E DAILY Active LORazepam 1 MG 2 TABS Orally DAILY Active Citalopram Hydrobromide 20 MG 2 tablet Orally Once a day Active Stool Softener Orally Once a day Active Metamucil Fiber Orally BID Act nicholas Multivitamin Orally Active Biotin 1 tablet Orally Once a day Active Vitamin D 1 capsule Orally Onc e a day Active Calcium Acetate Orally Once a day Active Fish Oil 1 capsule Orally Onc e a day Active Vitamin B-12 Orally Once a day Active Social History Tobacco Use: Social History Observation Description Date Details (start date - stop date) Never Smoker NA - NA Tobacco Use/Smoking Question Answer Notes Are you a nonsmoker Alcohol Screen Question Answer Notes Did you have a drink contain ing alcohol in the past year? Yes How often did you have a dri nk containing alcohol in the past year? 4 or more times a week (4 points) Points 4 Problems Problem Type SNOMED Code ICD Code Onset Dates Problem Status W/U Status Risk Notes Problem 14941757 Rectal bleeding (K62.5) Active confirmed Problem 11612558 Constipation, unspecified constipation type (K59.00) Active confirmed Problem 86167043 Abdominal pain, unspecified abdominal location (R10.9) Active confirmed Problem 584048115 History of diverticulosis (Z87.19) Active confirmed Problem 68736842 Internal hemorrhoids with other complication (K64.8) Active confirmed Plan Of Treatment No Information Insurance Providers Payer Name Payer Address Payer Phone Subscriber Number Group Number Insured Name Patient Relationship to Insured Coverage Start Date Coverage End Date MEDICARE [address] [place] [address] [address] [place] [address] [id number] Mai Delgado Self - patient is the insured Medical (General) History Medical History History ICD Code RECTAL BLEEDING BIPOLAR DISORDER Surgical History Surgery Date(Month/Year) TONSILLITIS/ADNOIDECTOMY 1955 PARTIAL HYSTERECTOMY 2015
--- OUTSIDE RECORDS SUMMARY | 2024-09-13 15:23 | XMS_ITS | Clinical Summary ---
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 Name Role Phone Jose C Burns MD Primary Care Provider Allergies Active Allergy Reactions Criticality Noted Date Comments Aspirin 11/03/2013 Other reaction(s): bleeds Carbamazepine Rash with Blisters High 11/03/2013 [place]lyn Carbonate 11/03/2013 Other reaction(s): Swollen glands, Difficulty Swallowing Sulfa (Sulfonamide Antibiotics) Unknown 11/03/2013 Medications ALPRAZolam (XANAX) 0.5 MG tablet 06/02/2021 Active atorvastatin (LIPITOR) 40 MG tablet 05/29/2021 Active citalopram (CELEXA) 20 MG tablet 03/27/2021 Active LORazepam (ATIVAN) 1 MG tablet 06/10/2021 Active OLANZapine (ZYPREXA) 10 MG tablet 05/29/2021 Active progesterone (PROMETRIUM) 100 mg capsule 1 cap(s) Active Active Problems No known active problems Immunizations Immunization Administration Dates Next Due Tdap 06/19/2021 Social History Tobacco Use Types Packs/Day Years Used Date Smoking Tobacco: Never Smokeless Tobacco: Never Education Answer Date Recorded Are you interested in more education? Not on tristan e 06/21/2022 Are you concerned about learning? Not on file 06/21/2022 No 06/21/2022 No 06/21/2022 Digital Access Answer Date Recorded No 07/22/2022 No 07/22/2022 Reliable internet access at home? Not on file 07/22/2022 Device with a working camera? Not on file Comments Unknown Sex and Gender Information Value Date Recorded Sex Assigned at Not on file Legal Sex Female 10:05 PM EDT Gender Identity Not on file Sexual Orientation Not on file Last Filed Vital Signs Vital Sign Reading Time Taken Comments Blood Pressure 120/78 06/19/2021 6:34 PM EDT Pulse 59 06/19/2021 6:34 PM EDT Temperature 36.5 C (97.7 F) 06/19/2021 6:34 PM EDT Respiratory Rate 18 06/19/2021 6:34 PM EDT Oxygen Saturation 100% 06/19/2021 6:34 PM EDT Inhaled Oxygen Concentration - - Weight 52.2 kg (115 lb) 06/19/2021 6:34 PM EDT Height 162.6 cm (5' 4 ) 06/19/2021 6:34 PM EDT Body Mass Index 19.74 06/19/2021 6:34 PM EDT Plan of Treatment Health Maintenance Due Date Last Done Comments LIPID PANEL 1948 DEPRESSION SCREENING 1960 HEPATITIS C SCREENING 1966 ZOSTER VACCINES (1 of 2) 1998 OSTEOPOROSIS SCREENING INITIAL (ONE-TIME) 2013 COVID-19 VACCINE ( season) 2023 02/26/2023, 10/15/2022, 03/12/2022, Additional history exists Adult Td,Tdap Booster 06/20/2031 06/19/2021 SMOKING STATUS SCREENING (Once After 26 Yrs) Completed 06/19/2021 RSV VACCINE Completed 02/26/2023 PNEUMOCOCCAL VACCINES (50+ years) Completed 03/12/2023 HEPATITIS A VACCINES Aged Out No long er eligible based on patient's age to complete this topic HIB VACCINES Aged Out No longer eligi ble based on patient's age to complete this topic MENINGOCOCCAL VACCINES (ACWY) Aged Out No longer eligible based on patient's age to complete this topic MENINGOCOCCAL VACCINES (B) Aged Out N o longer eligible based on patient's age to complete this topic Medical Devices Not on file Insurance MEDICARE PART A & B MEDICARE PART A & B MEDICARE PART A & B MEDICARE PART A & B MEDICARE PART A & B MEDICARE PART A & B MEDICARE PART A & B MEDICARE PART A & B MEDICARE PART A & B Care Teams Poly Packer And Heat Sealer Relationship Specialty Start Date End Date Jose C Burns MD [address] [place] [id number] PCP - General Internal Medicine 4/26/22 Additional Source Comments The information contained in this document represents components of the legal health record. It is not the complete legal health record.[facility]
== END 2024-09-13 15:15 | disposition home or self-care (01) ==
LOC: HO.HMCFM 14:32
PROVIDERS: PCP Family Medicine; Visit Provider Family Medicine
DX: Z86.73 Personal history of transient ischemic attack (TIA), and cerebral infarction without residual deficits (principal); E78.5 Hyperlipidemia, unspecified; N28.9 Disorder of kidney and ureter, unspecified; F41.8 Other specified anxiety disorders

== ENCOUNTER → 2024-09-13 14:31 | Outpatient (BNVA) | payer MEDICARE, SELFPAY | PROVIDERS: PCP Family Medicine; Visit Provider Family Medicine | DX: E78.5 Hyperlipidemia, unspecified (principal); N28.9 Disorder of kidney and ureter, unspecified; F41.8 Other specified anxiety disorders; Z86.73 Personal history of transient ischemic attack (TIA), and cerebral infarction without residual deficits | CPT/HCPCS: 99212 ==